=== PATIENT | male | born 1960 | race Caucasian/White ===

== ENCOUNTER 2019-05-06 15:27 | Emergency (ER) | payer OTHER ==
[2019-05-06] MEDS ORDERED: methylPREDNISolone SOD SUCCI 125 MG/2 ML VIAL IV STA (15:48)
[2019-05-06] MEDS ORDERED: IPRATROPIUM-ALBUTEROL 3 ML NEB INHALATION STA (15:48)
[2019-05-06 16:31] LABS: Basophils % (A) 0 %; Eosinophils % (A) 1 %; HCT 43.7 % (39.0-53.0); Lymphocytes % (A) 14 %; MCH 31.8 pg (25.0-35.0); MCHC 34.5 g/dL (31.0-37.0); MCV 92.2 fL (80.0-100.0); Mean Platelet Volume 7.7; Monocytes # (A) 0.3 k/uL (0-1.0); Monocytes % (A) 4 %; Neutrophils # (A) 5.6 k/uL (1.3-7.7); Neutrophils % (A) 80 %; Platelet Count 230 k/uL (150-450); RBC 4.74 m/uL (4.30-5.90); RDW 14.8 % (11.5-15.5)
--- NOTE | 2019-05-06 16:36 | XR ---
EXAMINATION TYPE: XR chest 2V DATE OF EXAM: 05/06/2019 COMPARISON: 01/26/2011 HISTORY: Difficulty breathing TECHNIQUE: Frontal and lateral views of the chest are obtained. FINDINGS: Heart and mediastinum are normal. Lungs are clear. Diaphragm is normal. Bony thorax appear s normal. There are chest leads. IMPRESSION: Normal chest. No change.
[2019-05-06 16:47] LABS: ALT 34 U/L (21-72); AST 33 U/L (17-59); African American GFR (CKD) >90 (>60 ml/min/1.73 sqM); Albumin 4.5 g/dL (3.5-5.0); Alkaline Phosphatase 98 U/L (38-126); Anion Gap 10 mmol/L; Blood Urea Nitrogen 15 mg/dL (9-20); Calcium 9.2 mg/dL (8.4-10.2); Carbon Dioxide 24 mmol/L (22-30); Chloride 105 mmol/L (98-107); Creatine Kinase 301 U/L (55-170); Glucose 114 mg/dL (74-99); Lipase 49 U/L (23-300); Magnesium 2.2 mg/dL (1.6-2.3); Potassium 4.3 mmol/L (3.5-5.1); Sodium 139 mmol/L (137-145); Total Bilirubin 0.4 mg/dL (0.2-1.3); Total Protein 7.3 g/dL (6.3-8.2)
--- NOTE | 2019-05-06 17:40 | ED ---
General Adult HPI - General Chief complaint: Shortness of Breath Stated complaint: SEA Time Seen by Provider: 05/06/19 15:45 Source: patient Mode of arrival: ambulatory Limitations: no limitations - History of Present Illness Initial comments: 58-year-old male presenting for strep throat tightness in breathing. Patient states he has tightness with breathing. He denies any chest pain or shortness of breath. He states he has history of COPD. Patient states he is nervous he inhaled something as he has been spreading his yard. Patient states that he is somewhat congested. Patient denies any leg swelling he denies hemoptysis history of DVT he denies recent surgeries recent travel recent immobilization. Patient denies any significant cough or sputum production. He denies fevers. He denies abdominal pain back pain. He denies any difficulty urinating. Patient states he generalized feels unwell. He states he was given an inhaler steroids at the urgent care facility for outpatient use. Patient states he was told to present to the emergency department for second opinion. He states he did not feel as necessary but abided by their recommendation. Upon arrival patient appears well there is no signs of acute distress. Afebrile. - Related Data Home Medications Medication Instructions Recorded Confirmed Albuterol Inhaler [Ventolin Hfa 1 - 2 puff INHALATION RT-Q6H PRN 05/06/19 05/06/19 Inhaler] predniSONE See Taper PO DIRECTED 05/06/19 05/06/19 Allergies Allergy/AdvReac Type Severity Reaction Status Date / Time Iodinated Contrast- Oral and AdvReac Nausea & Verified 05/06/19 17:05 IV Dye Vomiting/PASSES OUT Review of Systems ROS Statement: Those systems with pertinent positive or pertinent negative responses have been documented in the HPI. ROS Other: All systems not noted in ROS Statement are negative. Past Medical History Past Medical History: COPD History of Any Multi-Drug Resistant Organisms: None Reported Past Surgical History: Orthopedic Surgery Past Psychological History: No Psychological Hx Reported Smoking Status: Current every day smoker Past Alcohol Use History: Daily, Heavy Past Drug Use History: None Reported General Exam - General Exam Comments Initial Comments: General: The patient is awake and alert, in no distress, and does not appear acutely ill. Eye: +3 mm pupils are equal, round and reactive to light, extra-ocular movements are intact. No nystagmus. There is normal conjunctiva bilaterally. No signs of icterus. No photophobia Ears, nose, mouth and throat: There are moist mucous membranes and no oral lesions. Oropharynx was not erythematous there is no tonsillar enlargement exudates or lesions. Uvula midline. Tympanic membranes are not erythematous or is no effusions bulging or retraction. No tenderness to palpation of the mastoid. No anterior cervical lymphadenopathy. Rhinorrhea, clear and bilateral nares. No tripoding, no drooling. Neck: The neck is supple, there is no tenderness or JVD. No nuchal rigidity negative Brudzinski and Kernig Cardiovascular: There is a regular rate and rhythm. No murmur, rub or gallop is appreciated. Respiratory: Respirations are non-labored, breath sounds are equal. Mild expiratory wheeze. No stridor, rales, or rhonchi. No retractions or abdominal breathing. Gastrointestinal: Soft, non-distended, non-tender abdomen without masses or organomegaly noted. There is no rebound or guarding present. Bowel sounds are unremarkable. Musculoskeletal: Normal ROM, no tenderness. Strength 5/5. Sensation intact. Radial pulses equal bilaterally 2+. Neurological: A&O x 3. CN II-XII intact, There are no obvious motor or sensory deficits. Coordination appears grossly intact. Speech appears normal, no muffling. Skin: Skin is warm and dry and no rashes or lesions are noted. No extremity edema Psychiatric: Cooperative Limitations: no limitations Course Vital Signs 05/06/19 05/06/19 15:39 17:12 Temperature 99.1 F Pulse Rate 73 88 Respiratory 18 18 Rate Blood Pressure 143/90 140/87 O2 Sat by Pulse 94 L 96 Oximetry EKG Findings - EKG Comments: EKG Findings:: Ventricular rate 63 bpm, MI interval 152 ms, QRS adventist 88 ms, QT/QTc 412/421. This is normal sinus rhythm. There is right axis noted. N o ST elevation or depression. Medical Decision Making - Medical Decision Making Well appaering 58-year-old male presenting for sore throat, tight sensation chest with deep inspiration. Patient denies chest pain, he states it feels tight only with a deep breath, no tightness at rest or with exertion. Just describes it as he cannot expand his lungs. Patient's lung exam reveals mild wheeze. Patient has no findings consistent with focal consolidation x-ray. Patient was given SoluMedrol DuoNeb treatment emergency department. Improvement of wheezing. EKG no findings consistent with ACS. Troponin (-). Dimer WNL. Laboratory studies revealed no leukocytosis. Patient appears well no signs of acute distress. At this time do feel patient is stable for discharge with outpatient primary care follow-up. Did discuss the case with her provider, Raghav Luna care plan discharge at this time. - Lab Data Result diagrams: 05/06/19 16:02 05/06/19 16:02 Lab Results 05/06/19 05/06/19 05/06/19 Range/Units 16:02 16:02 16:02 WBC 7.0 (3.8-10.6) k/uL RBC 4.74 (4.30-5.90) m/uL Hgb 15.0 (13.0-17.5) gm/dL Hct 43.7 (39.0-53.0) % MCV 92.2 (80.0-100.0) fL MCH 31.8 (25.0-35.0) pg MCHC 34.5 (31.0-37.0) g/dL RDW 14.8 (11.5-15.5) % Plt Count 230 (150-450) k/uL Neutrophils % 80 % Lymphocytes % 14 % Monocytes % 4 % Eosinophils % 1 % Basophils % 0 % Neutrophils # 5.6 (1.3-7.7) k/uL Lymphocytes # 1.0 (1.0-4.8) k/uL Monocytes # 0.3 (0-1.0) k/uL Eosinophils # 0.0 (0-0.7) k/uL Basophils # 0.0 (0-0.2) k/uL D-Dimer (<0.60) mg/L FEU Sodium 139 (137-145) mmol/L Potassium 4.3 (3.5-5.1) mmol/L Chloride 105 (98-107) mmol/L Carbon Dioxide 24 (22-30) mmol/L Anion Gap 10 mmol/L BUN 15 (9-20) mg/dL Creatinine 0.88 (0.66-1.25) mg/dL Est GFR (CKD-EPI)AfAm >90 (>60 ml/min/1.73 sqM) Est GFR (CKD-EPI)NonAf >90 (>60 ml/min/1.73 sqM) Glucose 114 H (74-99) mg/dL Calcium 9.2 (8.4-10.2) mg/dL Magnesium 2.2 (1.6-2.3) mg/dL Total Bilirubin 0.4 (0.2-1.3) mg/dL AST 33 (17-59) U/L ALT 34 (21-72) U/L Alkaline Phosphatase 98 (38-126) U/L Creatine Kinase 301 H (55-170) U/L Troponin I <0.012 (0.000-0.034) ng/mL C-Reactive Protein 6.4 (<10.0) mg/L Total Protein 7.3 (6.3-8.2) g/dL Albumin 4.5 (3.5-5.0) g/dL Lipase 49 (23-300) U/L Urine Color Urine Appearance (Clear) Urine pH (5.0-8.0) Ur Specific [place] (1.001-1.035) Urine Protein (Negative) Urine Glucose (UA) (Negative) Urine Ketones (Negative) Urine Blood (Negative) Urine Nitrite (Negative) Urine Bilirubin (Negative) Urine Urobilinogen (<2.0) mg/dL Ur Leukocyte Esterase (Negative) 05/06/19 05/06/19 Range/Units 16:02 18:33 WBC (3.8-10.6) k/uL RBC (4.30-5.90) m/uL Hgb (13.0-17.5) gm/dL Hct (39.0-53.0) % MCV (80.0-100.0) fL MCH (25.0-35.0) pg MCHC (31.0-37.0) g/dL RDW (11.5-15.5) % Plt Count (150-450) k/uL Neutrophils % % Lymphocytes % % Monocytes % % Eosinophils % % Basophils % % Neutrophils # (1.3-7.7) k/uL Lymphocytes # (1.0-4.8) k/uL Monocytes # (0-1.0) k/uL Eosinophils # (0-0.7) k/uL Basophils # (0-0.2) k/uL D-Dimer 0.28 (<0.60) mg/L FEU Sodium (137-145) mmol/L Potassium (3.5-5.1) mmol/L Chloride (98-107) mmol/L Carbon Dioxide (22-30) mmol/L Anion Gap mmol/L BUN (9-20) mg/dL Creatinine (0.66-1.25) mg/dL Est GFR (CKD-EPI)AfAm (>60 ml/min/1.73 sqM) Est GFR (CKD-EPI)NonAf (>60 ml/min/1.73 sqM) Glucose (74-99) mg/dL Calcium (8.4-10.2) mg/dL Magnesium (1.6-2.3) mg/dL Total Bilirubin (0.2-1.3) mg/dL AST (17-59) U/L ALT (21-72) U/L Alkaline Phosphatase (38-126) U/L Creatine Kinase (55-170) U/L Troponin I (0.000-0.034) ng/mL C-Reactive Protein (<10.0) mg/L Total Protein (6.3-8.2) g/dL Albumin (3.5-5.0) g/dL Lipase (23-300) U/L Urine Color Light Yellow Urine Appearance Clear (Clear) Urine pH 7.0 (5.0-8.0) Ur Specific [place] 1.005 (1.001-1.035) Urine Protein Negative (Negative) Urine Glucose (UA) Negative (Negative) Urine Ketones Negative (Negative) Urine Blood Negative (Negative) Urine Nitrite Negative (Negative) Urine Bilirubin Negative (Negative) Urine Urobilinogen <2.0 (<2.0) mg/dL Ur Leukocyte Esterase Negative (Negative) Disposition Clinical Impression: URI (upper respiratory infection), Sore throat Disposition: HOME SELF-CARE Condition: Good Instructions (If sedation given, give patient instructions): Pharyngitis (ED), Upper Respiratory Infection (ED) Additional Instructions: Please use medication as discussed. Please follow-up with family doctor in the next 2 days. Please return to emergency room if the symptoms increase or worsen or for any other concerns. Is patient prescribed a controlled substance at d/c from ED?: No Referrals: None,Stated [Primary Care Provider] - 1-2 days Time of Disposition: 19:29
[2019-05-06 17:46] LABS: C Reactive Protein 6.4 mg/L (<10.0)
[2019-05-06 18:57] LABS: Appearance,Urine Clear (Clear); Bilirubin,Urine Negative (Negative); Blood,Urine Negative (Negative); Color,Urine Light Yellow; Glucose,Urine (UA) Negative (Negative); Ketones,Urine Negative (Negative); Leukocyte Esterase,Urine Negative (Negative); Nitrite,Urine Negative (Negative); Protein,Urine Negative (Negative); Specific Gravity,Urine 1.005 (1.001-1.035); Urobilinogen,Urine <2.0 mg/dL (<2.0)
[2019-05-06 19:59] VITALS: BP 136/80; PULSE 76; RESP 16; TEMP 99
== END 2019-05-06 19:59 | disposition home or self-care (01) ==
LOC: EC 15:27
DX: J06.9 Acute upper respiratory infection, unspecified (principal); J02.9 Acute pharyngitis, unspecified; J44.9 Chronic obstructive pulmonary disease, unspecified; F17.200 Nicotine dependence, unspecified, uncomplicated; Z79.52 Long term (current) use of systemic steroids; Z91.041 Radiographic dye allergy status; Z53.29 Procedure and treatment not carried out because of patient's decision for other reasons
CPT/HCPCS: 36415; 93005; 85379; 80053; 82550; 83690; 83735; 84484; 85025; 86140; 81003; 71046; 99285; 96374; J2930

== ENCOUNTER 2019-05-08 11:45 | Emergency (ER) | payer OTHER ==
[2019-05-08 11:58] VITALS: RESP 16; TEMP 98.3
--- NOTE | 2019-05-08 14:56 | XR ---
EXAMINATION TYPE: XR chest 2V DATE OF EXAM: 05/08/2019 COMPARISON: 05/06/2019 INDICATION: Short of breath TECHNIQUE: Frontal and lateral views of the chest are obtained. FINDINGS: The heart size is normal. The pulmonary vasculature is normal. The lungs are clear. IMPRESSION: 1. No acute pulmonary process.
[2019-05-08 14:59] LABS: Basophils % (A) 0 %; Eosinophils % (A) 0 %; HCT 46.4 % (39.0-53.0); HGB 15.1 gm/dL (13.0-17.5); Lymphocytes # (A) 1.1 k/uL (1.0-4.8); Lymphocytes % (A) 10 %; MCH 30.8 pg (25.0-35.0); MCHC 32.6 g/dL (31.0-37.0); MCV 94.5 fL (80.0-100.0); Mean Platelet Volume 7.2; Monocytes # (A) 0.3 k/uL (0-1.0); Monocytes % (A) 2 %; Neutrophils # (A) 9.6 k/uL (1.3-7.7); Neutrophils % (A) 87 %; Platelet Count 245 k/uL (150-450); RBC 4.91 m/uL (4.30-5.90); RDW 13.4 % (11.5-15.5)
[2019-05-08 15:16] LABS: ALT 44 U/L (21-72); AST 41 U/L (17-59); African American GFR (CKD) >90 (>60 ml/min/1.73 sqM); Albumin 4.5 g/dL (3.5-5.0); Alkaline Phosphatase 88 U/L (38-126); Anion Gap 11 mmol/L; Blood Urea Nitrogen 19 mg/dL (9-20); Calcium 9.4 mg/dL (8.4-10.2); Carbon Dioxide 24 mmol/L (22-30); Chloride 106 mmol/L (98-107); Glucose 122 mg/dL (74-99); Potassium 4.6 mmol/L (3.5-5.1); Sodium 141 mmol/L (137-145); Total Bilirubin 0.6 mg/dL (0.2-1.3); Total Protein 7.5 g/dL (6.3-8.2)
--- NOTE | 2019-05-08 15:48 | ED ---
Dizziness HPI - General Chief Complaint: Dizziness Stated Complaint: dizziness Time Seen by Provider: 05/08/19 14:06 Source: patient Mode of arrival: ambulatory Limitations: no limitations - History of Present Illness Initial Comments: Patient is a 58-year-old male presents emergency Department with shortness of breath. Patient reports going to the emergency department 2 days ago for similar symptoms and was discharged. Patient reports most of the tightness is around his "upper chest and throat". Patient denies chest pain or pain radiating to either upper extremity. Patient reports the shortness of breath is not exertional. Patient denies headache, fever, nausea, vomiting or diaphoresis. Patient reports mild dizziness and lightheadedness but denies headaches. Patient denies one sided paresthesias or muscle weakness. patient does report a history of COPD and is a current smoker. Patient reports waking up this morning and feeling short of breath so he continue taking "fast shallow breaths" and developed dizziness. Patient denies recent chemotherapy, recent prolonged periods of inactivity, history of DVT, hemoptysis, or leg pain. Patient denies cough, changes in sputum production. - Related Data Home Medications Medication Instructions Recorded Confirmed Albuterol Inhaler [Ventolin Hfa 1 - 2 puff INHALATION RT-Q6H PRN 05/06/19 05/08/19 Inhaler] predniSONE See Taper PO DIRECTED 05/06/19 05/08/19 Allergies Allergy/AdvReac Type Severity Reaction Status Date / Time Iodinated Contrast- Oral and AdvReac Nausea & Verified 05/08/19 14:33 IV Dye Vomiting/PASSES OUT Review of Systems ROS Statement: Those systems with pertinent positive or pertinent negative responses have been documented in the HPI. ROS Other: All systems not noted in ROS Statement are negative. Past Medical History Past Medical History: COPD History of Any Multi-Drug Resistant Organisms: None Reported Past Surgical History: Orthopedic Surgery Past Psychological History: No Psychological Hx Reported Smoking Status: Current every day smoker Past Alcohol Use History: Daily, Heavy Past Drug Use History: None Reported General Exam Limitations: no limitations General appearance: alert, in no apparent distress Head exam: Present: atraumatic, normocephalic, normal inspection Eye exam: Present: normal appearance, PERRL, EOMI Pupils: Present: normal accommodation ENT exam: Present: normal exam, normal oropharynx, mucous membranes moist, TM's normal bilaterally, normal external ear exam Neck exam: Present: normal inspection, full ROM Respiratory exam: Present: normal lung sounds bilaterally, wheezes (Very mild). Absent: respiratory distress, rales, rhonchi, stridor, chest wall tenderness, accessory muscle use Cardiovascular Exam: Present: regular rate, normal rhythm, normal heart sounds Extremities exam: Present: normal inspection, full ROM, normal capillary refill, other (+2 posterior tibialis and dorsalis pedis, bilaterally. +2 ulnar and radial pulses bilaterally.). Absent: calf tenderness Back exam: Present: normal inspection, full ROM. Absent: CVA tenderness (R), CVA tenderness (L) Neurological exam: Present: alert, oriented X3 Psychiatric exam: Present: normal affect, normal mood Skin exam: Present: warm, intact, normal color Course Vital Signs 05/08/19 11:55 Temperature 98.3 F Pulse Rate 60 Respiratory 16 Rate Blood Pressure 148/87 O2 Sat by Pulse 97 Oximetry EKG Findings - EKG Comments: EKG Findings:: EKG reading: Sinus bradycardia, septal infarct but does not appear according to my interpretation. Ventricular rate 51. MS interval 142. QRS duration 78. QT/QTc 430/396. P-RT axes -12 57 46 Medical Decision Making - Medical Decision Making Patient is a 58-year-old male presenting to emergency Department with dizziness. Chest x-ray was unremarkable. CT of the brain is negative for acute hemorrhages or midline shift. Troponins and d-dimer is negative. Patient does have a very mild leukocytosis. Rest of the exam is otherwise unremarkable. EKG is showing sinus bradycardia, inturpretted by Dr. Ruff. Based on history, physical examination, labs and imaging I suspect the patient to have developed dizziness and lightheadedness due to rapid shallow breathing. It is normal and there are no acute cardio pulmonary pathologies present. Patient advised to follow with primary care. Patient advised to take his nebulizer inhaler when developing shortness of breath. Strict return parameters were thoroughly discussed with patient who is understanding and agreeable. I counseled the patient for smoking cessation for greater than 3 minutes. Case discussed with Dr. Ruff who is in agreement with the treatment plan. - Lab Data Result diagrams: 05/08/19 14:20 05/08/19 14:20 Lab Results 05/08/19 05/08/19 05/08/19 Range/Units 14:20 14:20 14:20 WBC 11.0 H (3.8-10.6) k/uL RBC 4.91 (4.30-5.90) m/uL Hgb 15.1 (13.0-17.5) gm/dL Hct 46.4 (39.0-53.0) % MCV 94.5 (80.0-100.0) fL MCH 30.8 (25.0-35.0) pg MCHC 32.6 (31.0-37.0) g/dL RDW 13.4 (11.5-15.5) % Plt Count 245 (150-450) k/uL Neutrophils % 87 % Lymphocytes % 10 % Monocytes % 2 % Eosinophils % 0 % Basophils % 0 % Neutrophils # 9.6 H (1.3-7.7) k/uL Lymphocytes # 1.1 (1.0-4.8) k/uL Monocytes # 0.3 (0-1.0) k/uL Eosinophils # 0.0 (0-0.7) k/uL Basophils # 0.0 (0-0.2) k/uL D-Dimer 0.31 (<0.60) mg/L FEU Sodium 141 (137-145) mmol/L Potassium 4.6 (3.5-5.1) mmol/L Chloride 106 (98-107) mmol/L Carbon Dioxide 24 (22-30) mmol/L Anion Gap 11 mmol/L BUN 19 (9-20) mg/dL Creatinine 0.87 (0.66-1.25) mg/dL Est GFR (CKD-EPI)AfAm >90 (>60 ml/min/1.73 sqM) Est GFR (CKD-EPI)NonAf >90 (>60 ml/min/1.73 sqM) Glucose 122 H (74-99) mg/dL Calcium 9.4 (8.4-10.2) mg/dL Magnesium (1.6-2.3) mg/dL Total Bilirubin 0.6 (0.2-1.3) mg/dL AST 41 (17-59) U/L ALT 44 (21-72) U/L Alkaline Phosphatase 88 (38-126) U/L Troponin I (0.000-0.034) ng/mL Total Protein 7.5 (6.3-8.2) g/dL Albumin 4.5 (3.5-5.0) g/dL 05/08/19 05/08/19 Range/Units 14:20 14:20 WBC (3.8-10.6) k/uL RBC (4.30-5.90) m/uL Hgb (13.0-17.5) gm/dL Hct (39.0-53.0) % MCV (80.0-100.0) fL MCH (25.0-35.0) pg MCHC (31.0-37.0) g/dL RDW (11.5-15.5) % Plt Count (150-450) k/uL Neutrophils % % Lymphocytes % % Monocytes % % Eosinophils % % Basophils % % Neutrophils # (1.3-7.7) k/uL Lymphocytes # (1.0-4.8) k/uL Monocytes # (0-1.0) k/uL Eosinophils # (0-0.7) k/uL Basophils # (0-0.2) k/uL D-Dimer (<0.60) mg/L FEU Sodium (137-145) mmol/L Potassium (3.5-5.1) mmol/L Chloride (98-107) mmol/L Carbon Dioxide (22-30) mmol/L Anion Gap mmol/L BUN (9-20) mg/dL Creatinine (0.66-1.25) mg/dL Est GFR (CKD-EPI)AfAm (>60 ml/min/1.73 sqM) Est GFR (CKD-EPI)NonAf (>60 ml/min/1.73 sqM) Glucose (74-99) mg/dL Calcium (8.4-10.2) mg/dL Magnesium 2.4 H (1.6-2.3) mg/dL Total Bilirubin (0.2-1.3) mg/dL AST (17-59) U/L ALT (21-72) U/L Alkaline Phosphatase (38-126) U/L Troponin I <0.012 (0.000-0.034) ng/mL Total Protein (6.3-8.2) g/dL Albumin (3.5-5.0) g/dL Disposition Clinical Impression: SOB (shortness of breath) Disposition: HOME SELF-CARE Condition: Stable Instructions (If sedation given, give patient instructions): Dizziness (ED) Additional Instructions: Continue using the albuterol once daily develop shortness of breath. Please follow-up with primary care. Please return to emergency department if symptoms worsen. Is patient prescribed a controlled substance at d/c from ED?: No Referrals: Gretta Hendrickson MD [Primary Care Provider] - 1-2 days Time of Disposition: 18:06
--- NOTE | 2019-05-08 16:32 | CT ---
EXAMINATION TYPE: CT brain barry wo con DATE OF EXAM: 05/08/2019 COMPARISON: None HISTORY: Dizziness. CT DLP: 1320.7 mGycm, Automated exposure control for dose reduction was used. CONTRAST: None CT of the brain is performed utilizing 3 mm thick sections through the posterior fossa and 3 mm thick sections through the remaining calvarium. Study is performed within 24 hours of arrival to the hospital. No abnormal hyperdensity is present to suggest an acute intracranial hemorrhage. No mass lesion is evident. No acute infarcts are evident. Ventricles and sulci are appropriate for the patient age. Paranasal sinuses and mastoid air cells within the [id number] are clear. IMPRESSIONS: 1. Normal CT brain. CT cervical spine. COMPARISON: None CT of the cervical spine is performed in the axial plane at 2 mm thick sections. Reconstructed image s in the coronal, and sagittal plane are reviewed on the computer. No acute fractures are evident. Vertebral body alignment is normal. There is diffuse loss of disc height throughout the cervical spine. Small anterior vertebral body spu rs are present C5 and C6. Vertebral body heights are preserved. No spinal canal stenosis is evident. Uncovertebral joint hypertrophy is present causing scattered areas of mild foraminal narrowing. IMPRESSIONS: 1. No acute fractures.
[2019-05-08 18:26] VITALS: BP 149/91; PULSE 54
== END 2019-05-08 18:25 | disposition home or self-care (01) ==
LOC: EC 11:45
DX: D72.829 Elevated white blood cell count, unspecified (principal); R07.89 Other chest pain; R00.1 Bradycardia, unspecified; Z79.52 Long term (current) use of systemic steroids; Z91.041 Radiographic dye allergy status; J44.9 Chronic obstructive pulmonary disease, unspecified; F17.200 Nicotine dependence, unspecified, uncomplicated
CPT/HCPCS: 36415; 70450; 71046; 72125; 80053; 83735; 84484; 85025; 85379; 93005; 99284

== ENCOUNTER 2019-05-12 11:46 | Emergency (ER) | payer OTHER ==
[2019-05-12 12:38] LABS: Appearance,Urine Clear (Clear); Bilirubin,Urine Negative (Negative); Blood,Urine Negative (Negative); Color,Urine Light Yellow; Glucose,Urine (UA) Negative (Negative); Ketones,Urine Negative (Negative); Leukocyte Esterase,Urine Negative (Negative); Nitrite,Urine Negative (Negative); Protein,Urine Negative (Negative); Specific Gravity,Urine 1.004 (1.001-1.035); Urobilinogen,Urine <2.0 mg/dL (<2.0)
[2019-05-12 12:44] LABS: Basophils % (A) 0 %; Eosinophils % (A) 0 %; HCT 47.9 % (39.0-53.0); HGB 15.8 gm/dL (13.0-17.5); Lymphocytes # (A) 0.8 k/uL (1.0-4.8); Lymphocytes % (A) 9 %; MCHC 33.1 g/dL (31.0-37.0); MCV 93.6 fL (80.0-100.0); Mean Platelet Volume 7.3; Monocytes # (A) 0.2 k/uL (0-1.0); Monocytes % (A) 2 %; Neutrophils # (A) 7.8 k/uL (1.3-7.7); Neutrophils % (A) 88 %; Platelet Count 262 k/uL (150-450); RBC 5.12 m/uL (4.30-5.90); RDW 13.1 % (11.5-15.5); WBC 8.9 k/uL (3.8-10.6)
[2019-05-12 12:49] LABS: ALT 38 U/L (21-72); AST 24 U/L (17-59); African American GFR (CKD) >90 (>60 ml/min/1.73 sqM); Albumin 4.5 g/dL (3.5-5.0); Alkaline Phosphatase 87 U/L (38-126); Anion Gap 9 mmol/L; Blood Urea Nitrogen 18 mg/dL (9-20); Calcium 9.4 mg/dL (8.4-10.2); Carbon Dioxide 26 mmol/L (22-30); Chloride 106 mmol/L (98-107); Glucose 138 mg/dL (74-99); Potassium 4.5 mmol/L (3.5-5.1); Sodium 141 mmol/L (137-145); Total Bilirubin 0.5 mg/dL (0.2-1.3); Total Protein 7.4 g/dL (6.3-8.2)
[2019-05-12] MEDS ORDERED: MECLIZINE 12.5 MG TAB PO STA (13:29)
--- NOTE | 2019-05-12 13:38 | ED ---
General Adult HPI - General Chief complaint: Weakness Stated complaint: vertigo Time Seen by Provider: 05/12/19 11:51 Source: patient, EMS, RN notes reviewed, old records reviewed Mode of arrival: EMS Limitations: no limitations - History of Present Illness Initial comments: 58-year-old male patient presents to ED for multiple complaints. Patient reports that he was seen approximate 6 days ago for a COPD exacerbation, started on steroids. Patient reports that since then he has had waxing and waning dizziness, lightheadedness, weakness, ringing in left ear. Patient denies any chest pain or shortness of breath. Patient reports that 2 days ago he felt very dizzy and was evaluated having a workup including a negative CT of brain. Patient reports that he felt well yesterday. Patient reports that today he again had symptoms of weakness and dizziness. Patient reports that this morning he woke up, had 3 cups of coffee, smoke multiple cigarettes, took prednisone, use albuterol inhaler and Zyrtec. Patient reports that he then felt dizzy, lightheaded, some generalized weakness. Patient reports that he presented to the clinic and had a sensation of presyncope. Patient also reports that he was having a sensation of ringing in his left ear. Patient reports that for a transient period of time he felt dizzy and had difficulty speaking. Patient states that this resolved without any intervention was only transient. Patient denies any facial droop, unilateral weakness in arms or legs, paresthesias. At time of evaluation, patient states that generalized weakness sensation and dizziness has greatly improved. Denies any headache at this time. Systemic: Pt denies fatigue, fever/chills, rash. Pt denies weakness, night sweats, weight loss. Neuro: Pt denies headache, visual disturbances, syncope. HEENT: Pt denies ocular discharge or irritation, otalgia, rhinorrhea, pharyngitis or notable lymphadenopathy. Cardiopulmonary: Pt denies chest pain, SOB, heart palpitations, dyspnea on exertion. Abdominal/GI: Pt denies abdominal pain, n/v/d. : Pt denies dysuria, burning w/ urination, frequency/urgency. Denies new onset urinary or bowel incontinence. MSK: Pt denies myalgia, loss of strength or function in extremities. Neuro: Pt denies new onset weakness, paresthesias. - Related Data Home Medications Medication Instructions Recorded Confirmed Albuterol Inhaler [Ventolin Hfa 1 - 2 puff INHALATION RT-Q6H PRN 05/06/19 05/08/19 Inhaler] predniSONE See Taper PO DIRECTED 05/06/19 05/08/19 Previous Rx's Medication Instructions Recorded Meclizine [Antivert] 25 mg PO Q6H PRN #20 tab 05/12/19 Allergies Allergy/AdvReac Type Severity Reaction Status Date / Time Iodinated Contrast- Oral and AdvReac Nausea & Verified 05/08/19 14:33 IV Dye Vomiting/PASSES OUT Review of Systems ROS Statement: Those systems with pertinent positive or pertinent negative responses have been documented in the HPI. ROS Other: All systems not noted in ROS Statement are negative. Past Medical History Past Medical History: COPD History of Any Multi-Drug Resistant Organisms: None Reported Past Surgical History: Orthopedic Surgery Past Psychological History: No Psychological Hx Reported Smoking Status: Current every day smoker Past Alcohol Use History: Daily, Heavy Past Drug Use History: None Reported General Exam - General Exam Comments Initial Comments: Constitutional: NAD, AOX3, Pt has pleasant affect. HEENT: NC/AT, trachea midline, neck supple, no lymphadenopathy. Posterior pharynx non erythematous, without exudates. External ears appear normal, without discharge. Mucous membranes moist. Eyes PERRLA, EOM intact. There is no scleral icterus. No pallor noted. Cardiopulmonary: RRR, no murmurs, rubs or gallops, no JVD noted. Lungs CTAB in anterior and posterior edmonds. No peripheral edema. Abdominal exam: Abdomen soft and non-distended. Abdomen non-tender to palpation in all 4 quadrants. Bowel sounds active in LLQ. No hepatosplenomegaly. No ecchymosis Neuro: CN II-XII intact x2. No nuchal rigidity. No raccon eyes, no yu sign, no hemotympanum. No cervical spinal tenderness. NIH 0. MSK: No posterior calf tenderness bilaterally, homans sign negative bilaterally. Posterior tibialis and radial pulse +2 bilaterally. Sensation intact in upper and lower extremities. Full active ROM in upper and lower extremities, 5/5 stregnth. Limitations: no limitations Course Vital Signs 05/12/19 05/12/19 11:55 12:30 Temperature 98.3 F Pulse Rate 67 66 Respiratory 18 18 Rate Blood Pressure 147/103 132/83 O2 Sat by Pulse 98 97 Oximetry Medical Decision Making - Medical Decision Making 58-year-old male patient presents to due to complaints of ringing in left ear, waxing and waning dizziness, sensation generalized weakness. Patient has a chest pain or shortness breath this time. Patient's vital signs are stable, afebrile. Physical exam displayed a normal neurologic exam, NIH of 0. Laboratory investigations were noncompressive. Troponin was negative. EKG is not concerning for acute ischemia, no change from prior. Shared decision making as patient recently had a CT of brain, patient does not wish to repeat that study due to Reilly radiation. At this time patient's symptoms do appear to be consistent with vertigo. Patient administered meclizine. Patient discharged with primary care provider and neurology follow-up. Pt recommended to not drive. Case discussed with Dr. Gates. - Lab Data Result diagrams: 05/12/19 12:23 05/12/19 12:23 Lab Results 05/12/19 05/12/19 05/12/19 Range/Units 12:23 12:23 12:23 WBC 8.9 (3.8-10.6) k/uL RBC 5.12 (4.30-5.90) m/uL Hgb 15.8 (13.0-17.5) gm/dL Hct 47.9 (39.0-53.0) % MCV 93.6 (80.0-100.0) fL MCH 31.0 (25.0-35.0) pg MCHC 33.1 (31.0-37.0) g/dL RDW 13.1 (11.5-15.5) % Plt Count 262 (150-450) k/uL Neutrophils % 88 % Lymphocytes % 9 % Monocytes % 2 % Eosinophils % 0 % Basophils % 0 % Neutrophils # 7.8 H (1.3-7.7) k/uL Lymphocytes # 0.8 L (1.0-4.8) k/uL Monocytes # 0.2 (0-1.0) k/uL Eosinophils # 0.0 (0-0.7) k/uL Basophils # 0.0 (0-0.2) k/uL Sodium 141 (137-145) mmol/L Potassium 4.5 (3.5-5.1) mmol/L Chloride 106 (98-107) mmol/L Carbon Dioxide 26 (22-30) mmol/L Anion Gap 9 mmol/L BUN 18 (9-20) mg/dL Creatinine 0.86 (0.66-1.25) mg/dL Est GFR (CKD-EPI)AfAm >90 (>60 ml/min/1.73 sqM) Est GFR (CKD-EPI)NonAf >90 (>60 ml/min/1.73 sqM) Glucose 138 H (74-99) mg/dL Calcium 9.4 (8.4-10.2) mg/dL Total Bilirubin 0.5 (0.2-1.3) mg/dL AST 24 (17-59) U/L ALT 38 (21-72) U/L Alkaline Phosphatase 87 (38-126) U/L Troponin I <0.012 (0.000-0.034) ng/mL Total Protein 7.4 (6.3-8.2) g/dL Albumin 4.5 (3.5-5.0) g/dL Urine Color Urine Appearance (Clear) Urine pH (5.0-8.0) Ur Specific Corder (1.001-1.035) Urine Protein (Negative) Urine Glucose (UA) (Negative) Urine Ketones (Negative) Urine Blood (Negative) Urine Nitrite (Negative) Urine Bilirubin (Negative) Urine Urobilinogen (<2.0) mg/dL Ur Leukocyte Esterase (Negative) 05/12/19 Range/Units 12:23 WBC (3.8-10.6) k/uL RBC (4.30-5.90) m/uL Hgb (13.0-17.5) gm/dL Hct (39.0-53.0) % MCV (80.0-100.0) fL MCH (25.0-35.0) pg MCHC (31.0-37.0) g/dL RDW (11.5-15.5) % Plt Count (150-450) k/uL Neutrophils % % Lymphocytes % % Monocytes % % Eosinophils % % Basophils % % Neutrophils # (1.3-7.7) k/uL Lymphocytes # (1.0-4.8) k/uL Monocytes # (0-1.0) k/uL Eosinophils # (0-0.7) k/uL Basophils # (0-0.2) k/uL Sodium (137-145) mmol/L Potassium (3.5-5.1) mmol/L Chloride (98-107) mmol/L Carbon Dioxide (22-30) mmol/L Anion Gap mmol/L BUN (9-20) mg/dL Creatinine (0.66-1.25) mg/dL Est GFR (CKD-EPI)AfAm (>60 ml/min/1.73 sqM) Est GFR (CKD-EPI)NonAf (>60 ml/min/1.73 sqM) Glucose (74-99) mg/dL Calcium (8.4-10.2) mg/dL Total Bilirubin (0.2-1.3) mg/dL AST (17-59) U/L ALT (21-72) U/L Alkaline Phosphatase (38-126) U/L Troponin I (0.000-0.034) ng/mL Total Protein (6.3-8.2) g/dL Albumin (3.5-5.0) g/dL Urine Color Light Yellow Urine Appearance Clear (Clear) Urine pH 7.0 (5.0-8.0) Ur Specific Corder 1.004 (1.001-1.035) Urine Protein Negative (Negative) Urine Glucose (UA) Negative (Negative) Urine Ketones Negative (Negative) Urine Blood Negative (Negative) Urine Nitrite Negative (Negative) Urine Bilirubin Negative (Negative) Urine Urobilinogen <2.0 (<2.0) mg/dL Ur Leukocyte Esterase Negative (Negative) Disposition Clinical Impression: Vertigo, Lightheadedness Disposition: HOME SELF-CARE Condition: Stable Instructions (If sedation given, give patient instructions): Vertigo (ED) Additional Instructions: Patient to adhere to previously discussed treatment plan and will take medication(s) as directed. Patient to follow up with PCP in 1-2 days. Patient to return to ED if symptoms do not improve. Take medications as needed for vertigo symptoms. Follow up with neurology consult. Return to ER if condition worsens in any way. Prescriptions: Meclizine [Antivert] 25 mg PO Q6H PRN #20 tab PRN Reason: Dizziness Is patient prescribed a controlled substance at d/c from ED?: No Referrals: Gretta Hendrickson MD [Primary Care Provider] - 1-2 days Joshua Lima MD [Medical Doctor] - 1-2 days
[2019-05-12 14:19] VITALS: BP 131/83; PULSE 71; RESP 16; TEMP 97.9
== END 2019-05-12 14:59 | disposition home or self-care (01) ==
LOC: EC 11:46
DX: R42 Dizziness and giddiness (principal); R53.1 Weakness; H93.12 Tinnitus, left ear; R07.9 Chest pain, unspecified; R06.02 Shortness of breath; J44.9 Chronic obstructive pulmonary disease, unspecified; F17.210 Nicotine dependence, cigarettes, uncomplicated; Z79.52 Long term (current) use of systemic steroids; Z91.041 Radiographic dye allergy status
CPT/HCPCS: 36415; 80053; 81003; 84484; 85025; 93005; 99285

== ENCOUNTER 2020-01-25 15:44 | Emergency (ER) | payer OTHER ==
[2020-01-25 15:50] VITALS: RESP 18
[2020-01-25] MEDS ORDERED: ONDANSETRON 4 MG/2 ML VIAL IVP STA (16:23)
[2020-01-25] MEDS ORDERED: SODIUM CHLORIDE 0.9% 1,000 ML IV STA (16:23)
[2020-01-25] MEDS ORDERED: PANTOPRAZOLE 40 MG/10 ML VIAL IVP STA (16:23)
--- NOTE | 2020-01-25 16:31 | ED ---
General Adult HPI - General Chief complaint: Nausea/Vomiting/Diarrhea Stated complaint: Diarrhea, fever Time Seen by Provider: 01/25/20 15:56 Source: patient Mode of arrival: ambulatory Limitations: no limitations - History of Present Illness Initial comments: Patient is a 59-year-old male with history of vertigo presents emergency Department with multiple chief complaints. Patient reports he has developed intermittent, dull abdominal pain in the periUmbilical region for about one week. Patient states he's also noticed some dark stools over the last week. Patient states the pain appears to be exacerbated postprandially. Patient states he does have occasional acid reflux sensation. States he he drinks lots of coffee, pop and usually eats about one hour prior to going to bed. Patient states typically sleeps flat without a pillow. Patient is also reporting pain near his right buttock that has been on and off for the last several months. Patient also reports occasional dizziness after he wakes up in the morning with the room spinning around him. Patient reports he was evaluated previously in the ED and was discharged. Patient states she followed up with a primary care and has seen a neurologist who cleared the patient. Patient denies any urinary symptoms. Patient denies any testicular pain swelling or penile discharge. Denies any cough chest pain shortness of breath blurry vision one-sided weakness or paresthesias. Patient states she was evaluated at later in hospital and [place] with no significant findings. - Related Data Home Medications Medication Instructions Recorded Confirmed Albuterol Inhaler [Ventolin Hfa 1 - 2 puff INHALATION RT-Q6H PRN 05/06/19 05/08/19 Inhaler] predniSONE See Taper PO DIRECTED 05/06/19 05/08/19 Previous Rx's Medication Instructions Recorded Meclizine [Antivert] 25 mg PO Q6H PRN #20 tab 05/12/19 Omeprazole [PriLOSEC] 20 mg PO AC-BRKFST #30 cap 01/25/20 Allergies Allergy/AdvReac Type Severity Reaction Status Date / Time Iodinated Contrast Media AdvReac Nausea & Verified 01/25/20 15:50 [Iodinated Contrast- Oral Vomiting/PASSES and IV Dye] OUT Review of Systems ROS Statement: Those systems with pertinent positive or pertinent negative responses have been documented in the HPI. ROS Other: All systems not noted in ROS Statement are negative. Past Medical History Past Medical History: COPD History of Any Multi-Drug Resistant Organisms: None Reported Past Surgical History: Orthopedic Surgery Past Psychological History: No Psychological Hx Reported Smoking Status: Current every day smoker Past Alcohol Use History: Daily, Heavy Past Drug Use History: None Reported General Exam Limitations: no limitations General appearance: alert, in no apparent distress Head exam: Present: atraumatic, normocephalic, normal inspection Eye exam: Present: normal appearance, PERRL, EOMI Pupils: Present: normal accommodation ENT exam: Present: normal exam, normal oropharynx, mucous membranes moist, TM's normal bilaterally, normal external ear exam Neck exam: Present: normal inspection, full ROM Respiratory exam: Present: normal lung sounds bilaterally Cardiovascular Exam: Present: regular rate, normal rhythm, normal heart sounds GI/Abdominal exam: Present: soft, tenderness (Mild, periumbilical tenderness.). Absent: distended, guarding, rebound, rigid Extremities exam: Present: normal inspection, full ROM Back exam: Present: normal inspection, full ROM Neurological exam: Present: alert, oriented X3 Psychiatric exam: Present: normal affect, normal mood Skin exam: Present: warm, dry, intact, normal color Course Vital Signs 01/25/20 01/25/20 01/25/20 15:46 17:02 18:15 Temperature 98.0 F 99.0 F 99.1 F Pulse Rate 79 82 Respiratory 18 18 Rate Blood Pressure 144/74 136/65 O2 Sat by Pulse 99 98 Oximetry Medical Decision Making - Medical Decision Making Patient is a 59-year-old male with history of vertigo presenting to emergency Department with multiple chief complaints. Patient has a right ovarian evaluated for his neurological symptoms that he has been cleared. Patient does have anxiety. I suspect the abdominal symptoms are related due to his constant intake of NSAIDs for prolonged periods of time. Patient given Protonix fluids and antiemetics in the ED. CBC does show mild leukocytosis. CMP unremarkable. Patient reports improvement in the abdominal symptoms. Patient will be started on omeprazole. Patient advised to avoid before going to bed. He was also advised to avoid any acidic drinks or foods. He was advised to keep the bed slightly elevated when sleeping. I suspect the dizziness secondary to his history of vertigo. Patient advised to take Antivert whenever he develops onset of symptoms. Advised to follow with primary care. Return parameters thoroughly discussed the patient is abstaining agreeable. Case discussed with physician. - Lab Data Result diagrams: 01/25/20 17:19 01/25/20 17:19 Lab Results 01/25/20 01/25/20 Range/Units 17:19 17:19 WBC 11.1 H (3.8-10.6) k/uL RBC 4.80 (4.30-5.90) m/uL Hgb 14.8 (13.0-17.5) gm/dL Hct 44.9 (39.0-53.0) % MCV 93.5 (80.0-100.0) fL MCH 30.9 (25.0-35.0) pg MCHC 33.1 (31.0-37.0) g/dL RDW 12.9 (11.5-15.5) % Plt Count 222 (150-450) k/uL Neutrophils % 73 % Lymphocytes % 20 % Monocytes % 5 % Eosinophils % 1 % Basophils % 0 % Neutrophils # 8.2 H (1.3-7.7) k/uL Lymphocytes # 2.2 (1.0-4.8) k/uL Monocytes # 0.5 (0-1.0) k/uL Eosinophils # 0.1 (0-0.7) k/uL Basophils # 0.0 (0-0.2) k/uL Sodium 138 (137-145) mmol/L Potassium 4.2 (3.5-5.1) mmol/L Chloride 105 (98-107) mmol/L Carbon Dioxide 28 (22-30) mmol/L Anion Gap 5 mmol/L BUN 16 (9-20) mg/dL Creatinine 0.89 (0.66-1.25) mg/dL Est GFR (CKD-EPI)AfAm >90 (>60 ml/min/1.73 sqM) Est GFR (CKD-EPI)NonAf >90 (>60 ml/min/1.73 sqM) Glucose 105 H (74-99) mg/dL Calcium 9.4 (8.4-10.2) mg/dL Total Bilirubin 0.4 (0.2-1.3) mg/dL AST 24 (17-59) U/L ALT 29 (4-49) U/L Alkaline Phosphatase 77 (38-126) U/L Total Protein 7.3 (6.3-8.2) g/dL Albumin 4.5 (3.5-5.0) g/dL Disposition Clinical Impression: Nausea vomiting and diarrhea, Abdominal pain Disposition: HOME SELF-CARE Condition: Stable Instructions (If sedation given, give patient instructions): Diet for Stomach Ulcers and Gastritis (ED), Gastroesophageal Reflux Disease (DC) Additional Instructions: Take prescribed medication as directed. Follow-up with primary care. Return to emergency department if symptoms worsen. Prescriptions: Omeprazole [PriLOSEC] 20 mg PO -BRKFST #30 cap Is patient prescribed a controlled substance at d/c from ED?: No Referrals: Gretta Hendrickson MD [Primary Care Provider] - 1-2 days Time of Disposition: 17:52
[2020-01-25 17:27] LABS: Basophils % (A) 0 %; Eosinophils # (A) 0.1 k/uL (0-0.7); Eosinophils % (A) 1 %; HCT 44.9 % (39.0-53.0); HGB 14.8 gm/dL (13.0-17.5); Lymphocytes # (A) 2.2 k/uL (1.0-4.8); Lymphocytes % (A) 20 %; MCH 30.9 pg (25.0-35.0); MCHC 33.1 g/dL (31.0-37.0); MCV 93.5 fL (80.0-100.0); Mean Platelet Volume 7.9; Monocytes # (A) 0.5 k/uL (0-1.0); Monocytes % (A) 5 %; Neutrophils # (A) 8.2 k/uL (1.3-7.7); Neutrophils % (A) 73 %; Platelet Count 222 k/uL (150-450); RDW 12.9 % (11.5-15.5); WBC 11.1 k/uL (3.8-10.6)
[2020-01-25 17:39] LABS: ALT 29 U/L (4-49); AST 24 U/L (17-59); African American GFR (CKD) >90 (>60 ml/min/1.73 sqM); Albumin 4.5 g/dL (3.5-5.0); Alkaline Phosphatase 77 U/L (38-126); Anion Gap 5 mmol/L; Blood Urea Nitrogen 16 mg/dL (9-20); Calcium 9.4 mg/dL (8.4-10.2); Carbon Dioxide 28 mmol/L (22-30); Chloride 105 mmol/L (98-107); Glucose 105 mg/dL (74-99); Non-African American GFR(CKD) >90 (>60 ml/min/1.73 sqM); Potassium 4.2 mmol/L (3.5-5.1); Sodium 138 mmol/L (137-145); Total Bilirubin 0.4 mg/dL (0.2-1.3); Total Protein 7.3 g/dL (6.3-8.2)
[2020-01-25 18:21] VITALS: BP 136/65; PULSE 82; TEMP 99.1
== END 2020-01-25 18:15 | disposition home or self-care (01) ==
LOC: EC 15:44
DX: R19.7 Diarrhea, unspecified (principal); R11.2 Nausea with vomiting, unspecified; R10.33 Periumbilical pain; D72.829 Elevated white blood cell count, unspecified; F41.9 Anxiety disorder, unspecified; R42 Dizziness and giddiness; M79.18 Myalgia, other site; R19.5 Other fecal abnormalities; R19.8 Other specified symptoms and signs involving the digestive system and abdomen; J44.9 Chronic obstructive pulmonary disease, unspecified; F17.200 Nicotine dependence, unspecified, uncomplicated; Z91.041 Radiographic dye allergy status; Z79.52 Long term (current) use of systemic steroids; Z79.899 Other long term (current) drug therapy
CPT/HCPCS: 36415; 80053; 85025; 99284; 96374; 96375; 96361; J2405; C9113

== ENCOUNTER 2020-01-27 20:03 | Observation (INO) | payer OTHER ==
[2020-01-27] MEDS ORDERED: SODIUM CHLORIDE 0.9% 1,000 ML IV ONE (20:33)
--- NOTE | 2020-01-27 20:38 | ED ---
General Adult HPI - General Source: patient, RN notes reviewed, old records reviewed Mode of arrival: ambulatory Limitations: no limitations <Abram Moraes - Last Filed: 01/27/20 22:45> <Aleksandr Coto - Last Filed: 01/27/20 23:36> - General Chief complaint: Dizziness Stated complaint: Chest pain Time Seen by Provider: 01/27/20 20:11 - History of Present Illness Initial comments: 59-year-old male patient presents to ED for evaluation. Patient does have history of COPD. Patient reports that beginning one week ago he has been having symptoms. Patient reports that he has been having paresthesias in his upper and lower extremities. Patient force that he has been feeling as if he is going to pass out. Patient also that he has been having some in his lower back region. At time of evaluation patient is asymptomatic. Patient does report that 1 hour ago he began experiencing a squeezing chest pain. States it lasted approximately 30 minutes. This was while driving. Reports the pain has resolved at this time. Denies any shortness of breath. Patient does also report that he recently quit drinking alcohol. States he quit one week ago. States that he previously drank 6 beers per day. Patient reports that this is the fifth time he has been seen. He reports that he was seen for similar symptoms at [facility] twice, 2 days ago this facility. He states that he has been having subjective fevers and chills. Denies any other complaints. Systemic: Pt denies fatigue, fever/chills, rash. Pt denies weakness, night sweats, weight loss. Neuro: Pt denies headache, visual disturbances, syncope or pre-syncope. HEENT: Pt denies ocular discharge or irritation, otalgia, rhinorrhea, pharyngitis or notable lymphadenopathy. Cardiopulmonary: Pt denies chest pain, SOB, heart palpitations, dyspnea on exertion. Abdominal/GI: Pt denies abdominal pain, n/v/d. : Pt denies dysuria, burning w/ urination, frequency/urgency. Denies new onset urinary or bowel incontinence. MSK: Pt denies myalgia, loss of strength or function in extremities. Neuro: Pt denies new onset weakness, paresthesias. (Abram Moraes) - Related Data Home Medications Medication Instructions Recorded Confirmed Albuterol Inhaler [Ventolin Hfa 1 - 2 puff INHALATION RT-Q6H PRN 05/06/19 05/08/19 Inhaler] predniSONE See Taper PO DIRECTED 05/06/19 05/08/19 Previous Rx's Medication Instructions Recorded Meclizine [Antivert] 25 mg PO Q6H PRN #20 tab 05/12/19 Omeprazole [PriLOSEC] 20 mg PO AC-BRKFST #30 cap 01/25/20 Allergies Allergy/AdvReac Type Severity Reaction Status Date / Time Iodinated Contrast Media AdvReac Nausea & Verified 01/27/20 20:09 [Iodinated Contrast- Oral Vomiting/PASSES and IV Dye] OUT Review of Systems ROS Other: All systems not noted in ROS Statement are negative. <Abram Moraes - Last Filed: 01/27/20 22:45> ROS Other: All systems not noted in ROS Statement are negative. <Aleksandr Coto - Last Filed: 01/27/20 23:36> ROS Statement: Those systems with pertinent positive or pertinent negative responses have been documented in the HPI. Past Medical History Past Medical History: COPD History of Any Multi-Drug Resistant Organisms: None Reported Past Surgical History: Orthopedic Surgery Past Psychological History: No Psychological Hx Reported Smoking Status: Current every day smoker Past Alcohol Use History: Daily, Heavy Past Drug Use History: None Reported <Abram Moraes - Last Filed: 01/27/20 22:45> General Exam Limitations: no limitations <Abram Moraes - Last Filed: 01/27/20 22:45> - General Exam Comments Initial Comments: Constitutional: NAD, AOX3, Pt has pleasant affect. HEENT: NC/AT, trachea midline, neck supple, no lymphadenopathy. Posterior pharynx non erythematous, without exudates. External ears appear normal, without discharge. Mucous membranes moist. Eyes PERRLA, EOM intact. There is no scleral icterus. No pallor noted. Cardiopulmonary: RRR, no murmurs, rubs or gallops, no JVD noted. Lungs CTAB in anterior and posterior edmonds. No peripheral edema. Abdominal exam: Abdomen soft and non-distended. Abdomen non-tender to palpation in all 4 quadrants. Bowel sounds active in LLQ. No hepatosplenomegaly. No ecchymosis Neuro: CN II-XII intact. No nuchal rigidity. No raccon eyes, no yu sign, no hemotympanum. No cervical spinal tenderness. MSK: No posterior calf tenderness bilaterally, homans sign negative bilaterally. Posterior tibialis and radial pulse +2 bilaterally. Sensation intact in upper and lower extremities. Full active ROM in upper and lower extremities, 5/5 stregnth. (Abram Moraes) Course <Aleksandr Coto - Last Filed: 01/27/20 23:36> Vital Signs 01/27/20 01/27/20 01/27/20 20:07 20:30 21:00 Temperature 98.6 F Pulse Rate 78 68 68 Respiratory 20 20 20 Rate Blood Pressure 126/83 144/85 140/88 O2 Sat by Pulse 100 98 97 Oximetry 01/27/20 01/27/20 22:00 23:00 Temperature 98.3 F Pulse Rate 72 62 Respiratory 20 18 Rate Blood Pressure 142/88 132/82 O2 Sat by Pulse 96 98 Oximetry - Reevaluation(s) Reevaluation #1: 01/27/20 23:35 PA supervision: I personally evaluate this case patient presents with complaints of chest pain. Patient does have a history of alcoholism and quit drinking about a week ago. The presentation is consistent with angina. Patient be admitted to 's service (Aleksandr Coto) Medical Decision Making - Lab Data Result diagrams: 01/27/20 20:20 01/27/20 20:20 - EKG Data -: EKG Interpreted by Me (and Dr. Coto ) <Abram Moraes - Last Filed: 01/27/20 22:45> - Lab Data Result diagrams: 01/27/20 20:20 01/27/20 20:20 <Aleksandr Coto - Last Filed: 01/27/20 23:36> - Medical Decision Making 59-year-old male patient presents to ED for evaluation. Patient does have history of COPD. Patient reports that beginning one week ago he has been having symptoms. Patient reports that he has been having paresthesias in his upper and lower extremities. Patient force that he has been feeling as if he is going to pass out. Patient also that he has been having some in his lower back region. At time of evaluation patient is asymptomatic. Patient does report that 1 hour ago he began experiencing a squeezing chest pain. States it lasted approximately 30 minutes. This was while driving. Reports the pain has resolved at this time. Denies any shortness of breath. Patient does also report that he recently quit drinking alcohol. States he quit one week ago. States that he previously drank 6 beers per day. Patient reports that this is the fifth time he has been seen. He reports that he was seen for similar symptoms at [facility] twice, 2 days ago this facility. He states that he has been having subjective fevers and chills. Denies any other complaints. Patient vital signs are stable, afebrile. Physical exam did not display acute pathology. NIH is 0. Sensation is intact. Laboratory investigations are noncompressive. D-dimer negative. Troponin negative. EKG is nonischemic. Patient will be admitted for serial troponins and continued evaluation. Patient denies any known chronic virus exposure, recent travel. Case discussed with Dr. Coto (Abram Moraes) - Lab Data Lab Results 01/27/20 01/27/20 01/27/20 Range/Units 20:20 20:20 20:20 WBC 10.4 (3.8-10.6) k/uL RBC 4.72 (4.30-5.90) m/uL Hgb 14.9 (13.0-17.5) gm/dL Hct 44.1 (39.0-53.0) % MCV 93.4 (80.0-100.0) fL MCH 31.7 (25.0-35.0) pg MCHC 33.9 (31.0-37.0) g/dL RDW 13.1 (11.5-15.5) % Plt Count 243 (150-450) k/uL Neutrophils % 60 % Lymphocytes % 31 % Monocytes % 5 % Eosinophils % 2 % Basophils % 0 % Neutrophils # 6.3 (1.3-7.7) k/uL Lymphocytes # 3.2 (1.0-4.8) k/uL Monocytes # 0.5 (0-1.0) k/uL Eosinophils # 0.2 (0-0.7) k/uL Basophils # 0.0 (0-0.2) k/uL D-Dimer (<0.60) mg/L FEU Sodium 139 (137-145) mmol/L Potassium 3.9 (3.5-5.1) mmol/L Chloride 106 (98-107) mmol/L Carbon Dioxide 26 (22-30) mmol/L Anion Gap 7 mmol/L BUN 15 (9-20) mg/dL Creatinine 0.99 (0.66-1.25) mg/dL Est GFR (CKD-EPI)AfAm >90 (>60 ml/min/1.73 sqM) Est GFR (CKD-EPI)NonAf 83 (>60 ml/min/1.73 sqM) Glucose 120 H (74-99) mg/dL Calcium 9.3 (8.4-10.2) mg/dL Phosphorus 2.6 (2.5-4.5) mg/dL Magnesium 2.2 (1.6-2.3) mg/dL Total Bilirubin 0.2 (0.2-1.3) mg/dL AST 22 (17-59) U/L ALT 23 (4-49) U/L Alkaline Phosphatase 75 (38-126) U/L Troponin I <0.012 (0.000-0.034) ng/mL NT-Pro-B Natriuret Pep pg/mL Total Protein 7.0 (6.3-8.2) g/dL Albumin 4.4 (3.5-5.0) g/dL Urine Color Urine Appearance (Clear) Urine pH (5.0-8.0) Ur Specific [place] (1.001-1.035) Urine Protein (Negative) Urine Glucose (UA) (Negative) Urine Ketones (Negative) Urine Blood (Negative) Urine Nitrite (Negative) Urine Bilirubin (Negative) Urine Urobilinogen (<2.0) mg/dL Ur Leukocyte Esterase (Negative) Urine RBC (0-5) /hpf Urine WBC (0-5) /hpf Ur Squamous Epith Cells (0-4) /hpf Urine Mucus (None) /hpf Urine Opiates Screen (NotDetected) Ur Oxycodone Screen (NotDetected) Urine Methadone Screen (NotDetected) Ur Propoxyphene Screen (NotDetected) Ur Barbiturates Screen (NotDetected) U Tricyclic Antidepress (NotDetected) Ur Phencyclidine Scrn (NotDetected) Ur Amphetamines Screen (NotDetected) U Methamphetamines Scrn (NotDetected) U Benzodiazepines Scrn (NotDetected) Urine Cocaine Screen (NotDetected) U Marijuana (THC) Screen (NotDetected) Serum Alcohol mg/dL 01/27/20 01/27/20 01/27/20 Range/Units 20:20 20:20 20:20 WBC (3.8-10.6) k/uL RBC (4.30-5.90) m/uL Hgb (13.0-17.5) gm/dL Hct (39.0-53.0) % MCV (80.0-100.0) fL MCH (25.0-35.0) pg MCHC (31.0-37.0) g/dL RDW (11.5-15.5) % Plt Count (150-450) k/uL Neutrophils % % Lymphocytes % % Monocytes % % Eosinophils % % Basophils % % Neutrophils # (1.3-7.7) k/uL Lymphocytes # (1.0-4.8) k/uL Monocytes # (0-1.0) k/uL Eosinophils # (0-0.7) k/uL Basophils # (0-0.2) k/uL D-Dimer <0.17 (<0.60) mg/L FEU Sodium (137-145) mmol/L Potassium (3.5-5.1) mmol/L Chloride (98-107) mmol/L Carbon Dioxide (22-30) mmol/L Anion Gap mmol/L BUN (9-20) mg/dL Creatinine (0.66-1.25) mg/dL Est GFR (CKD-EPI)AfAm (>60 ml/min/1.73 sqM) Est GFR (CKD-EPI)NonAf (>60 ml/min/1.73 sqM) Glucose (74-99) mg/dL Calcium (8.4-10.2) mg/dL Phosphorus (2.5-4.5) mg/dL Magnesium (1.6-2.3) mg/dL Total Bilirubin (0.2-1.3) mg/dL AST (17-59) U/L ALT (4-49) U/L Alkaline Phosphatase (38-126) U/L Troponin I (0.000-0.034) ng/mL NT-Pro-B Natriuret Pep 94 pg/mL Total Protein (6.3-8.2) g/dL Albumin (3.5-5.0) g/dL Urine Color Urine Appearance (Clear) Urine pH (5.0-8.0) Ur Specific [place] (1.001-1.035) Urine Protein (Negative) Urine Glucose (UA) (Negative) Urine Ketones (Negative) Urine Blood (Negative) Urine Nitrite (Negative) Urine Bilirubin (Negative) Urine Urobilinogen (<2.0) mg/dL Ur Leukocyte Esterase (Negative) Urine RBC (0-5) /hpf Urine WBC (0-5) /hpf Ur Squamous Epith Cells (0-4) /hpf Urine Mucus (None) /hpf Urine Opiates Screen (NotDetected) Ur Oxycodone Screen (NotDetected) Urine Methadone Screen (NotDetected) Ur Propoxyphene Screen (NotDetected) Ur Barbiturates Screen (NotDetected) U Tricyclic Antidepress (NotDetected) Ur Phencyclidine Scrn (NotDetected) Ur Amphetamines Screen (NotDetected) U Methamphetamines Scrn (NotDetected) U Benzodiazepines Scrn (NotDetected) Urine Cocaine Screen (NotDetected) U Marijuana (THC) Screen (NotDetected) Serum Alcohol <10 mg/dL 01/27/20 Range/Units 21:15 WBC (3.8-10.6) k/uL RBC (4.30-5.90) m/uL Hgb (13.0-17.5) gm/dL Hct (39.0-53.0) % MCV (80.0-100.0) fL MCH (25.0-35.0) pg MCHC (31.0-37.0) g/dL RDW (11.5-15.5) % Plt Count (150-450) k/uL Neutrophils % % Lymphocytes % % Monocytes % % Eosinophils % % Basophils % % Neutrophils # (1.3-7.7) k/uL Lymphocytes # (1.0-4.8) k/uL Monocytes # (0-1.0) k/uL Eosinophils # (0-0.7) k/uL Basophils # (0-0.2) k/uL D-Dimer (<0.60) mg/L FEU Sodium (137-145) mmol/L Potassium (3.5-5.1) mmol/L Chloride (98-107) mmol/L Carbon Dioxide (22-30) mmol/L Anion Gap mmol/L BUN (9-20) mg/dL Creatinine (0.66-1.25) mg/dL Est GFR (CKD-EPI)AfAm (>60 ml/min/1.73 sqM) Est GFR (CKD-EPI)NonAf (>60 ml/min/1.73 sqM) Glucose (74-99) mg/dL Calcium (8.4-10.2) mg/dL Phosphorus (2.5-4.5) mg/dL Magnesium (1.6-2.3) mg/dL Total Bilirubin (0.2-1.3) mg/dL AST (17-59) U/L ALT (4-49) U/L Alkaline Phosphatase (38-126) U/L Troponin I (0.000-0.034) ng/mL NT-Pro-B Natriuret Pep pg/mL Total Protein (6.3-8.2) g/dL Albumin (3.5-5.0) g/dL Urine Color Yellow Urine Appearance Cloudy (Clear) Urine pH 7.0 (5.0-8.0) Ur Specific [place] 1.025 (1.001-1.035) Urine Protein Trace H (Negative) Urine Glucose (UA) Negative (Negative) Urine Ketones Negative (Negative) Urine Blood Negative (Negative) Urine Nitrite Negative (Negative) Urine Bilirubin Negative (Negative) Urine Urobilinogen 2.0 (<2.0) mg/dL Ur Leukocyte Esterase Negative (Negative) Urine RBC 3 (0-5) /hpf Urine WBC 1 (0-5) /hpf Ur Squamous Epith Cells <1 (0-4) /hpf Urine Mucus Many H (None) /hpf Urine Opiates Screen Not Detected (NotDetected) Ur Oxycodone Screen Not Detected (NotDetected) Urine Methadone Screen Not Detected (NotDetected) Ur Propoxyphene Screen Not Detected (NotDetected) Ur Barbiturates Screen Not Detected (NotDetected) U Tricyclic Antidepress Not Detected (NotDetected) Ur Phencyclidine Scrn Not Detected (NotDetected) Ur Amphetamines Screen Not Detected (NotDetected) U Methamphetamines Scrn Not Detected (NotDetected) U Benzodiazepines Scrn Not Detected (NotDetected) Urine Cocaine Screen Not Detected (NotDetected) U Marijuana (THC) Screen Not Detected (NotDetected) Serum Alcohol mg/dL - EKG Data EKG Comments: Ventricular rate 60, painful and 54, QRS 84, QT/QTc 42/42. Normal sensory rhythm, septal infarct age-indeterminate. No significant change from prior. No concern for acute ischemia. (Abram Moraes) Disposition Is patient prescribed a controlled substance at d/c from ED?: No <Abram Moraes - Last Filed: 01/27/20 22:45> <Aleksandr Coto - Last Filed: 01/27/20 23:36> Clinical Impression: Chest pain Disposition: ADMITTED IP TO THIS HOSP Condition: Serious
[2020-01-27] MEDS ORDERED: ASPIRIN 81 MG PO STA (20:47)
[2020-01-27 20:53] LABS: Basophils % (A) 0 %; Eosinophils # (A) 0.2 k/uL (0-0.7); Eosinophils % (A) 2 %; HCT 44.1 % (39.0-53.0); HGB 14.9 gm/dL (13.0-17.5); Lymphocytes # (A) 3.2 k/uL (1.0-4.8); Lymphocytes % (A) 31 %; MCH 31.7 pg (25.0-35.0); MCHC 33.9 g/dL (31.0-37.0); MCV 93.4 fL (80.0-100.0); Mean Platelet Volume 8.2; Monocytes # (A) 0.5 k/uL (0-1.0); Monocytes % (A) 5 %; Neutrophils # (A) 6.3 k/uL (1.3-7.7); Neutrophils % (A) 60 %; Platelet Count 243 k/uL (150-450); RBC 4.72 m/uL (4.30-5.90); RDW 13.1 % (11.5-15.5); WBC 10.4 k/uL (3.8-10.6)
[2020-01-27 21:05] LABS: ALT 23 U/L (4-49); AST 22 U/L (17-59); African American GFR (CKD) >90 (>60 ml/min/1.73 sqM); Albumin 4.4 g/dL (3.5-5.0); Alkaline Phosphatase 75 U/L (38-126); Anion Gap 7 mmol/L; Blood Urea Nitrogen 15 mg/dL (9-20); Calcium 9.3 mg/dL (8.4-10.2); Carbon Dioxide 26 mmol/L (22-30); Chloride 106 mmol/L (98-107); Glucose 120 mg/dL (74-99); Magnesium 2.2 mg/dL (1.6-2.3); Non-African American GFR(CKD) 83 (>60 ml/min/1.73 sqM); Phosphorus 2.6 mg/dL (2.5-4.5); Potassium 3.9 mmol/L (3.5-5.1); Sodium 139 mmol/L (137-145); Total Bilirubin 0.2 mg/dL (0.2-1.3)
[2020-01-27] MEDS ORDERED: LORazepam 2 MG/ML INJ IV PRN ×3 (21:06)
[2020-01-27] MEDS ORDERED: THIAMINE 100 MG/ML 2 ML VIAL IM STA (21:06)
--- NOTE | 2020-01-27 21:09 | XR ---
EXAMINATION TYPE: XR chest 2V DATE OF EXAM: 01/27/2020 COMPARISON: Chest x-ray May 08, 2019. HISTORY: Chest pain on and off. Numbness throughout body. TECHNIQUE: Frontal and lateral views of the chest are obtained. FINDINGS: There is no focal air space opacity, pleural effusion, or pneumothorax seen. The cardiac silhouette size remains within normal limits. The osseous structures are intact. Overlying EKG lead s redemonstrated. IMPRESSION: No acute cardiopulmonary process. No significant change from prior study.
[2020-01-27] MEDS: THIAMINE 100 MG TAB PO SCH (21:30)
[2020-01-27 21:33] LABS: Appearance,Urine Cloudy (Clear); Bilirubin,Urine Negative (Negative); Blood,Urine Negative (Negative); Color,Urine Yellow; Glucose,Urine (UA) Negative (Negative); Ketones,Urine Negative (Negative); Leukocyte Esterase,Urine Negative (Negative); Mucus,Urine Many /hpf; Nitrite,Urine Negative (Negative); Protein,Urine Trace (Negative); RBC,Urine 3 /hpf (0-5); Specific Gravity,Urine 1.025 (1.001-1.035); Squamous Epithelial Cell,Urine <1 /hpf (0-4); WBC,Urine 1 /hpf (0-5)
[2020-01-27 21:40] LABS: Amphetamine Screen,Urine Not Detected (NotDetected); Barbiturate Screen,Urine Not Detected (NotDetected); Benzodiazepines Screen,Urine Not Detected (NotDetected); Cocaine Screen,Urine Not Detected (NotDetected); Methadone Screen, Urine Not Detected (NotDetected); Opiate Screen,Urine Not Detected (NotDetected); Oxycodone Screen, Urine Not Detected (NotDetected); Phencyclidine Screen,Urine Not Detected (NotDetected); Tricyclic Antidepressant,Urine Not Detected (NotDetected); Urn Cannabinoid Scrn Not Detected (NotDetected)
[2020-01-27] MEDS ORDERED: NITROGLYCERIN SL TABS 0.4 MG TAB SUBLINGUAL PRN (21:54)
[2020-01-27] MEDS: SODIUM CHLORIDE 0.9% 1,000 ML IV SCH (23:00)
[2020-01-28 03:14] LABS: Cholesterol 172 mg/dL (<200); HDL Cholesterol 56 mg/dL (40-60); LDL Cholesterol,Calculated 100 mg/dL (0-99); Triglycerides 78 mg/dL (<150)
[2020-01-28] MEDS: THIAMINE 100 MG TAB PO SCH (05:38)
[2020-01-28 08:18] VITALS: RESP 18
[2020-01-28] MEDS ORDERED: ASPIRIN 325 MG TAB PO SCH (09:00)
[2020-01-28] MEDS: SODIUM CHLORIDE 0.9% 1,000 ML IV SCH (09:07)
--- NOTE | 2020-01-28 11:18 | CT ---
EXAMINATION TYPE: CT lumbar spine wo con DATE OF EXAM: 01/28/2020 11:07 AM COMPARISON: HISTORY: pain and numbness in back CT DLP: 744 mGycm Automated exposure control for dose reduction was used. Unenhanced CT of the lumbar spine was performed. Bone and soft tissue window settings are submitted as well as coronal and sagittal reconstructions. FINDINGS: There is atelectatic change present at the lung bases. There is minimal calcification of th e arterial tree. Paraspinal soft tissues are otherwise normal. Vertebral body height and alignment are maintained. There is no spondylolisthesis or spondylolysis. N o fractures are seen. There is mild disc displacement at L1-2 and with mild hypertrophic changes in t he facets there is mild trefoiling of the thecal sac. There is also a mild disc displacement at L2-3. No definite protrusion is seen. The intervertebral foramina appear reasonably well-maintained. There is mild facet arthropathy throughout the lumbar spine most marked at L4-5. IMPRESSION: 1. NO ACUTE OSSEOUS LESION. 2. MILD DEGENERATIVE CHANGE. 3. NO DEFINITE NEURAL COMPRESSION OR SIGNIFICANT COMPRESSIVE DISCOPATHY.
--- NOTE | 2020-01-28 11:21 | CT ---
EXAMINATION TYPE: CT sacrum wo con DATE OF EXAM: 01/28/2020 COMPARISON: None. HISTORY: pain and numbness in back CT DLP: 663.4 mGycm Automated exposure control for dose reduction was used. FINDINGS: There is mild diverticular change within the sigmoid colon. Presacral soft tissues are othe rwise normal. Sacral elements are well aligned. No fracture is seen. There is minimal sclerosis of the left SI join t. The right SI joint shows minimal sclerosis. No bony destructive lesion is seen. IMPRESSION: 1. NO ACUTE OSSEOUS LESION. 2. MINIMAL SCLEROSIS OF THE LEFT SI JOINT OF QUESTIONABLE SIGNIFICANCE. 3. MILD, UNCOMPLICATED DIVERTICULOSIS OF THE SIGMOID COLON.
--- NOTE | 2020-01-28 11:30 | P.HPIM ---
History of Present Illness Patient is a 9-year-old male came in with compensative pallor seizures in the lower extremity sitting denied any paresthesias in the upper extremities. Patient was seen in multiple hospitals in ERs was discharged home underwent mult iple testings. I do not have the results of those. Patient has multiple other nonspecific symptoms including some. Sensation or burning sensation going from his foot up to the top of the body whenever he eats. Patient is also coming of gaseous reflux disease symptoms. Patient does have good strength in lower expertise but he says he cannot even drive patient's is comparing of shortness of breath but. Saturating well at 96% on room air patient used to drink 6 beers a day quit drinking about 7 days ago it patient denied any fever chills cough all the imaging studies are within normal limits some obtaining a lumbosacral CAT scan if that is an show any significant abnormality patient will be discharged and patient was asked to take as needed Tylenol for his back pain. Patient doesn't have any incontinence of bowel. Denied any. His saddle anesthesia. Patient's Prilosec will be increased to twice a day. Review of Systems REVIEW OF SYSTEMS: CONSTITUTIONAL: No fever, no malaise, no fatigue. HEENT: No recent visual problems or hearing problems. Denied any sore throat. CARDIOVASCULAR: No chest pain, orthopnea, PND, no palpitations, no syncope. PULMONARY: No shortness of breath, no cough, no hemoptysis. GASTROINTESTINAL: No diarrhea. NEUROLOGICAL: No headaches, no weakness, no numbness. HEMATOLOGICAL: Denies any bleeding or petechiae. GENITOURINARY: Denies any burning micturition, frequency, or urgency. MUSCULOSKELETAL/RHEUMATOLOGICAL: As mentioned in HPI ENDOCRINE: Denies any polyuria or polydipsia. The rest of the 14-point review of systems is negative. Past Medical History Past Medical History: COPD History of Any Multi-Drug Resistant Organisms: None Reported Past Surgical History: Orthopedic Surgery Past Anesthesia/Blood Transfusion Reactions: No Reported Reaction Past Psychological History: No Psychological Hx Reported Smoking Status: Current every day smoker Past Alcohol Use History: Daily, Heavy Past Drug Use History: None Reported Medications and Allergies Home Medications Medication Instructions Recorded Confirmed Type Acetaminophen Tab [Tylenol] 650 mg PO Q4H PRN #60 tab 01/28/20 Rx Citalopram Hydrobromide [CeleXA] 10 mg PO DAILY 01/28/20 01/28/20 History Loratadine [Claritin] 10 mg PO DAILY 01/28/20 01/28/20 History Omeprazole [PriLOSEC] 20 mg PO BID #30 cap 01/28/20 01/28/20 Rx Allergies Allergy/AdvReac Type Severity Reaction Status Date / Time Iodinated Contrast Media AdvReac Nausea & Verified 01/27/20 20:09 [Iodinated Contrast- Oral Vomiting/PASSES and IV Dye] OUT Physical Exam Vitals: Vital Signs Temp Pulse Pulse Resp BP BP BP 01/28/20 08:16 98.2 F 54 L 18 128/71 01/28/20 04:00 97.9 F 46 L 16 124/72 01/28/20 00:00 98.3 F 63 16 134/73 01/27/20 23:06 98.3 F 16 134/73 01/27/20 23:00 98.3 F 62 18 132/82 01/27/20 22:00 72 20 142/88 01/27/20 21:00 68 20 140/88 01/27/20 20:30 68 20 144/85 01/27/20 20:07 98.6 F 78 20 126/83 Pulse Ox 01/28/20 08:16 96 01/28/20 04:00 99 01/28/20 00:00 97 01/27/20 23:06 97 01/27/20 23:00 98 01/27/20 22:00 96 01/27/20 21:00 97 01/27/20 20:30 98 01/27/20 20:07 100 Intake and Output 01/27/20 01/28/20 01/28/20 22:59 06:59 14:59 Intake Total 250 240 Balance 250 240 Intake: Oral 250 240 Other: Voiding Method Toilet Toilet # Voids 2 Weight 78.925 kg 78.1 kg PHYSICAL EXAMINATION: GENERAL: The patient is alert and oriented x3, not in any acute distress. Well developed, well nourished. HEENT: Pupils are round and equally reacting to light. EOMI. No scleral icterus. No conjunctival pallor. Normocephalic, atraumatic. No pharyngeal erythema. No thyromegaly. CARDIOVASCULAR: S1 and S2 present. No murmurs, rubs, or gallops. PULMONARY: Chest is clear to auscultation, no wheezing or crackles. ABDOMEN: Soft, nontender, nondistended, normoactive bowel sounds. No palpable organomegaly. MUSCULOSKELETAL: No joint swelling or deformity. EXTREMITIES: No cyanosis, clubbing, or pedal edema. NEUROLOGICAL: Gross neurological examination did not reveal any focal deficits. SKIN: No rashes. Results CBC & Chem 7: 01/27/20 20:20 01/27/20 20:20 Labs: Abnormal Lab Results - Last 24 Hours (Table) 01/27/20 01/27/20 01/28/20 Range/Units 20:20 21:15 02:38 Glucose 120 H (74-99) mg/dL LDL Cholesterol, Calc 100 H (0-99) mg/dL Urine Protein Trace H (Negative) Urine Mucus Many H (None) /hpf Thrombosis Risk Factor Assmnt - Choose All That Apply Each Factor Represents 1 point: Abnormal pulmonary function (COPD), Age 41-60 years Each Risk Factor Represents 3 Points: Family history of DVT/PE Thrombosis Risk Factor Assessment Total Risk Factor Score: 5 Thrombosis Risk Factor Assessment Level: High Risk Assessment and Plan Plan: -Subjective symptoms of paresthesias in both legs. Will obtain a computed t omography scan of the lumbosacral spine make sure there is any significant medical apathy. Patient doesn't have any weakness or. No saddle anesthesia patient will be discharged on Tylenol if that doesn't help can use steroids I'm not using steroids because of his gaseous visual reflux disease -Gastroesophageal reflux disease with the peptic ulcer disease symptoms of nausea epigastric abdominal discomfort increase the Prilosec to twice a day -Mild sinus bradycardia patient has some nonspecific ST-T wave changes on the EKG patient's troponins are negative rule out acute coronary syndromes -Alcohol abuse quit alcohol a week ago patient is presently not having withdrawals are expected withdrawals now. -COPD and nicotine abuse: Counseling was provided regarding nicotine abuse
--- NOTE | 2020-01-28 11:31 | P.DS ---
Providers Date of admission: 01/27/20 22:56 Attending physician: Karsten Armstrong Consults: 01/27/20 21:54 Consult Physician Urgent Consulting Provider: Brooks Coppola Consult Reason/Comments: chest pain Do you want consulting provider notified?: Yes Primary care physician: Gretta Hendrickson [facility] Course: Refer to my HPI for further details Patient Condition at Discharge: Serious Plan - Discharge Summary Discharge Rx Participant: Yes New Discharge Prescriptions: New Acetaminophen Tab [Tylenol] 650 mg PO Q4H PRN #60 tab PRN Reason: Pain Continue Loratadine [Claritin] 10 mg PO DAILY Citalopram Hydrobromide [CeleXA] 10 mg PO DAILY Changed Omeprazole [PriLOSEC] 20 mg PO BID #30 cap Discontinued hydrOXYzine HCL [Atarax] 25 mg PO TID PRN PRN Reason: Itching Discharge Medication List Acetaminophen Tab [Tylenol] 650 mg PO Q4H PRN #60 tab 01/28/20 [Rx] Citalopram Hydrobromide [CeleXA] 10 mg PO DAILY 01/28/20 [History] Loratadine [Claritin] 10 mg PO DAILY 01/28/20 [History] Omeprazole [PriLOSEC] 20 mg PO BID #30 cap 01/28/20 [Rx] Follow up Appointment(s)/Referral(s): Gretta Hendrickson MD [Primary Care Provider] - 3 Days Discharge Disposition: HOME SELF-CARE
[2020-01-28 11:36] VITALS: BP 125/76; PULSE 68; TEMP 98.1
--- NOTE | 2020-01-28 12:22 | CONS ---
CONSULTATION CHIEF COMPLAINT: Chest pain. HISTORY OF PRESENT ILLNESS: This is a 59-year-old gentleman with no significant past medical history who comes to the hospital complaining of chest pain. In the last several weeks, he has been at [facility], [facility], and also at this hospital and has come back to this hospital complaining of chest discomfort. His chest pain is sharp, precordial, and related to exertion and associated diaphoresis. EKG shows sinus rhythm with poor R wave progression. Cardiac enzymes have been negative. There is history of smoking. There is no history of hypertension, diabetes, dyslipidemia. The patient tells me that he had a recent negative stress test at [facility]. PAST MEDICAL HISTORY: Negative for hypertension, diabetes, dyslipidemia. MEDICATIONS: Medications are as charted. ALLERGIES: Allergies are as charted. FAMILY HISTORY: Negative for premature coronary artery disease. SOCIAL HISTORY: Negative current smoking, EtOH abuse or drug abuse. REVIEW OF SYSTEMS: HEENT: Unremarkable. CARDIAC: As described above. RESPIRATORY: Negative. GI: Negative. GENITOURINARY: Negative. ALLERGY/IMMUNOLOGY: Negative. MUSCULOSKELETAL: Significant for arthritis. PSYCHOSOCIAL: Negative. ENDOCRINE: Negative. DERM: Negative. CONSTITUTIONAL: Negative. ONCOLOGICAL: Negative. AUTO SERVICE ADVISOR: Negative. The rest of the system review is not relevant. EXAM: Comfortable at rest. Afebrile. Heart rate is 54 beats per minute, blood pressure is 128/70, respiratory rate is 18. There is no jugular venous distention. Chest exam reveals good air entry bilaterally. Heart exam reveals first and second heart sounds. No gallop. No murmur. No rub. Abdomen is soft, nontender. Exam of the extremities did not reveal any edema. Peripheral pulses were felt. ASSESSMENT: Precordial chest pain, atypical, probably noncardiac. PLAN: Obtain stress test from [facility]. If he had a negative stress test, does not need anything else done. I gave the patient the option of going home today. He does not want to. He will spend the night here. MMMICHAELAL / FERDINANDN: [id number] /
[2020-01-29] MEDS ORDERED: PANTOPRAZOLE 40 MG TABLET PO SCH (07:30)
[2020-01-29] MEDS ORDERED: LORATADINE 10 MG TAB PO SCH (09:00)
[2020-01-29] MEDS ORDERED: CITALOPRAM HYDROBROMIDE 10 MG TAB PO SCH (09:00)
== END 2020-01-28 12:17 | disposition home or self-care (01) ==
LOC: EC 20:03 → 3SCARD 22:56 → 1SOBS 01-28 07:51
PROVIDERS: ADMIT Hospitalist; ATTEND Hospitalist
DX: R07.2 Precordial pain (principal); R61 Generalized hyperhidrosis; R20.2 Paresthesia of skin; R42 Dizziness and giddiness; F10.10 Alcohol abuse, uncomplicated; F17.200 Nicotine dependence, unspecified, uncomplicated; J44.9 Chronic obstructive pulmonary disease, unspecified; K21.9 Gastro-esophageal reflux disease without esophagitis; K27.9 Peptic ulcer, site unspecified, unspecified as acute or chronic, without hemorrhage or perforation; Z91.041 Radiographic dye allergy status; Z71.6 Tobacco abuse counseling; Z82.49 Family history of ischemic heart disease and other diseases of the circulatory system; Z79.899 Other long term (current) drug therapy; Z79.52 Long term (current) use of systemic steroids
CPT/HCPCS: 96360; 96372; 99285; 36415; 93005; 85379; 83880; 80061; 80053; 83735; 84100; 84484 ×2; 85025; 81001; 80306; 71046; 72131; 72192; G0378 ×2; G0480; J3411; 80320

== ENCOUNTER 2020-02-01 09:15 | Emergency (ER) | payer OTHER ==
[2020-02-01 09:21] VITALS: BP 131/88; PULSE 77; RESP 18; TEMP 98
[2020-02-01] MEDS ORDERED: MAGNESIUM CITRATE 296 ML BOTTLE PO ONE (09:48)
--- NOTE | 2020-02-01 09:52 | XR ---
EXAMINATION TYPE: XR KUB DATE OF EXAM: 02/01/2020 9:46 AM CLINICAL HISTORY: Constipation and abdominal pain TECHNIQUE: Single upright image of the abdomen is obtained. COMPARISON: None. FINDINGS: Mild degree colonic fecal stasis. No dilated large or small bowel. No pneumoperitoneum. George g bases are well aerated. Osseous structures are grossly intact with mild degenerative change of the spine and hips. No suspicious calcification in the abdomen. IMPRESSION: Mild degree colonic fecal stasis in an overall nonobstructive bowel gas pattern.
--- NOTE | 2020-02-01 09:53 | ED ---
Abdominal Pain HPI - General Chief Complaint: Abdominal Pain Stated Complaint: constipation Time Seen by Provider: 02/01/20 09:33 Source: patient, RN notes reviewed Mode of arrival: ambulatory Limitations: no limitations - History of Present Illness Initial Comments: This a 59-year-old male presents emergency Department with chief complaint of constipation. Patient states he is not having stool output in the last few days. Patient states that he is not taking anything as he is unsure what take any prescription to take something. Patient states that initially taken out was very hard and states it is very small. Patient denies any localized abdominal pain denies fever, chills, chest pain or shortness breath. He states that when he feels increased gas the pain increases. Patient doesn't dysuria hematuria no prior abdominal surgeries no prior bowel obstructions. Patient had a few recent ER visits along with recent hospitalization for chest pain. At this time he was evaluated for his back pain which is chronic in nature had CT. Patient feels he needs MRI of his back. Patient denies any bowel incontinence or bladder retention - Related Data Home Medications Medication Instructions Recorded Confirmed Citalopram Hydrobromide [CeleXA] 10 mg PO DAILY 01/28/20 01/28/20 Loratadine [Claritin] 10 mg PO DAILY 01/28/20 01/28/20 Previous Rx's Medication Instructions Recorded Acetaminophen Tab [Tylenol] 650 mg PO Q4H PRN #60 tab 01/28/20 Omeprazole [PriLOSEC] 20 mg PO BID #30 cap 01/28/20 Allergies Allergy/AdvReac Type Severity Reaction Status Date / Time Iodinated Contrast Media AdvReac Nausea & Verified 02/01/20 09:21 [Iodinated Contrast- Oral Vomiting/PASSES and IV Dye] OUT Review of Systems ROS Statement: Those systems with pertinent positive or pertinent negative responses have been documented in the HPI. ROS Other: All systems not noted in ROS Statement are negative. Past Medical History Past Medical History: COPD History of Any Multi-Drug Resistant Organisms: None Reported Past Surgical History: Orthopedic Surgery Past Anesthesia/Blood Transfusion Reactions: No Reported Reaction Past Psychological History: No Psychological Hx Reported Smoking Status: Current every day smoker Past Alcohol Use History: Daily, Heavy Past Drug Use History: None Reported General Exam Limitations: no limitations General appearance: alert, in no apparent distress Head exam: Present: atraumatic, normocephalic, normal inspection Eye exam: Present: normal appearance, PERRL, EOMI. Absent: scleral icterus, conjunctival injection, periorbital swelling ENT exam: Present: normal exam, normal oropharynx, mucous membranes moist, TM's normal bilaterally Neck exam: Present: normal inspection, full ROM. Absent: tenderness, meningismus, lymphadenopathy Respiratory exam: Present: normal lung sounds bilaterally. Absent: respiratory distress, wheezes, rales, rhonchi, stridor Cardiovascular Exam: Present: regular rate, normal rhythm, normal heart sounds. Absent: systolic murmur, diastolic murmur, rubs, gallop, clicks GI/Abdominal exam: Present: soft, normal bowel sounds. Absent: distended, tenderness, guarding, rebound, rigid Back exam: Absent: CVA tenderness (R), CVA tenderness (L) Neurological exam: Present: alert, oriented X3, CN II-XII intact, reflexes normal. Absent: motor sensory deficit Skin exam: Present: warm, dry, intact, normal color. Absent: rash Course Vital Signs 02/01/20 09:18 Temperature 98.0 F Pulse Rate 77 Respiratory 18 Rate Blood Pressure 131/88 O2 Sat by Pulse 99 Oximetry Medical Decision Making - Medical Decision Making Patient's x-ray was reviewed there is no evidence of obstruction. There is mild stool noted. Patient be provided laxatives go home with. Patient's abdomen Reveal Any Localized Tenderness I Did Review Prior Medical Records Which I Reviewed Any Significant Findings. Patient CT Lumbar Spine Did Show Mild Degenerative Changes. Patient Informed of This He Is Informed That He Can Follow-Up with His PCP for MRI of His Back As an Outpatient Setting As Is No Red Flag Symptoms. Disposition Clinical Impression: Abdominal pain, Constipation Disposition: HOME SELF-CARE Condition: Stable Instructions (If sedation given, give patient instructions): Constipation (ED) Additional Instructions: Please return to the Emergency Department if symptoms worsen or any other concerns. Is patient prescribed a controlled substance at d/c from ED?: No Referrals: Gretta Hendrickson MD [Primary Care Provider] - 1-2 days Time of Disposition: 09:53
== END 2020-02-01 10:08 | disposition home or self-care (01) ==
LOC: EC 09:15
DX: K59.00 Constipation, unspecified (principal); R10.9 Unspecified abdominal pain; F17.200 Nicotine dependence, unspecified, uncomplicated; Z79.899 Other long term (current) drug therapy; Z91.041 Radiographic dye allergy status
CPT/HCPCS: 74018; 99284

== ENCOUNTER 2020-02-23 07:17 | Day surgery (SDC) | payer OTHER ==
[2020-02-22 11:58] VITALS: BMI 24.9
[~2020-02-23 07:17] MED LIST: LACTATED RINGERS 1,000 ML IV SCH; LIDOCAINE 1% (10MG/ML) FOR IV START INTRADERMA PRN
[2020-02-23 07:29] VITALS: TEMP 98
[2020-02-23] MEDS ORDERED: LACTATED RINGERS 1,000 ML IV ONE (07:29)
[2020-02-23] MEDS ORDERED: PROPOFOL 10 MG/ML 20 ML VIAL IV ONE (07:49)
[2020-02-23] MEDS ORDERED: LIDOCAINE 1% INJ 10MG/ML (20 ML MDV) ONE (07:49)
[2020-02-23] MEDS ORDERED: fentaNYL (PF) 50 MCG/ML 2 ML AMP ONE (07:49)
[2020-02-23] MEDS ORDERED: IV FLUID CONTINUATION 1,000 ML IV ONE (08:14)
--- NOTE | 2020-02-23 08:14 | P.PCN ---
Date of Procedure: 02/23/20 Procedure(s) Performed: Brief history: Patient is a pleasant 59-year-old white male scheduled for an elective upper endoscopy as well as colonoscopy as a part of evaluation of with abdominal pain, abdominal bloating. And weakness for the last few weeks duration. He went to the emergency room in 4 different occasions the last few months for the same symptoms. He also has family history of colon cance diagnosed in mother at age 70. r Procedure performed: Esophagogastroduodenoscopy with biopsy Colonoscopy with random biopsy Preoperative diagnosis: Abdominal pain, abdominal bloating Family history of colon cancer Anesthesia: MAC Procedure: After informed consent was obtained from the patient was brought into the endoscopy unit and IV sedation was administered by anesthesia under continuous monitoring. Initially upper endoscopy was done. The Olympus GF 160 video endoscope was inserted inserted into the mouth and esophagus intubated without any difficulty and was gradually advanced into the stomach and duodenum and carefully examined. The bulb and second part of the duodenum appeared normal. The scope was then withdrawn into the stomach adequately insufflated with air and upon careful examination the antrum had mild diffuse gastritis and biopsies were done from this area. The body, cardia and fundus appeared normal. The scope was then withdrawn into the esophagus. The GE junction was located at 40 cm to the incisors. It appeared regular with no erythema erosions or ulcerations. Rest of the esophagus appeared normal. Patient tolerated the procedure well. At this time the patient continued to remain sedation. Initial digital rectal examination was normal. Olympus CF 160 video colonoscope was then inserted into the rectum and gradually advanced to the cecum without any difficulty. Careful examination was performed as the scope was gradually being withdrawn. The prep was excellent. The cecum, ascending colon, transverse colon, descending colon, sigmoid colon and rectum appeared normal. Scattered left-sided diverticulosis seen. Retroflexion was performed in the rectum and small internal hemorrhoids were noted. Patient tolerated the procedure well. Impression: 1. Upper endoscopy revealed mild antral gastritis but no evidence of esophagitis or peptic ulcer disease 2. Colonoscopy revealed scattered left-sided diverticulosis and small internal hemorrhoids Recommendations: Findings of this examination were discussed with the patient as well as[ his family. He was advised to follow with the biopsy results. He will be seen in office in 2 weeks.
[2020-02-23 08:35] LABS: ALT 40 U/L (4-49); AST 29 U/L (17-59); African American GFR (CKD) >90 (>60 ml/min/1.73 sqM); Albumin 4.6 g/dL (3.5-5.0); Alkaline Phosphatase 101 U/L (38-126); Anion Gap 7 mmol/L; Blood Urea Nitrogen 18 mg/dL (9-20); Calcium 9.5 mg/dL (8.4-10.2); Carbon Dioxide 31 mmol/L (22-30); Chloride 101 mmol/L (98-107); Glucose 99 mg/dL (74-99); Non-African American GFR(CKD) >90 (>60 ml/min/1.73 sqM); Sodium 139 mmol/L (137-145); Total Bilirubin 0.7 mg/dL (0.2-1.3); Total Protein 7.7 g/dL (6.3-8.2)
[2020-02-23 08:38] VITALS: BP 115/67; PULSE 78; RESP 18
[2020-02-23 16:50] LABS: Gliadin AB IgA, Deaminated NEGATIVE (NEGATIVE); Gliadin AB IgA, Unit 0.3 U/mL; Gliadin AB IgG, Deaminated NEGATIVE (NEGATIVE)
== END 2020-02-23 08:47 | disposition home or self-care (01) ==
LOC: ORWHC2ENDO 07:17
PROVIDERS: ATTEND Internal Medicine Gastroenterology
DX: K29.50 Unspecified chronic gastritis without bleeding (principal); K57.30 Diverticulosis of large intestine without perforation or abscess without bleeding; K64.8 Other hemorrhoids; Z80.0 Family history of malignant neoplasm of digestive organs; J44.9 Chronic obstructive pulmonary disease, unspecified; Z91.041 Radiographic dye allergy status; Z79.899 Other long term (current) drug therapy
CPT/HCPCS: 80053; 83516 ×4; 45380; 43239; J2001; J3010; J2704; 88305

== ENCOUNTER 2020-06-06 10:34 | Emergency (ER) | payer OTHER ==
[2020-06-06 10:41] VITALS: TEMP 98
[2020-06-06] MEDS ORDERED: PANTOPRAZOLE 40 MG/10 ML VIAL IVP STA (11:09)
[2020-06-06] MEDS ORDERED: SODIUM CHLORIDE 0.9% 1,000 ML IV STA ×2 (11:09)
--- NOTE | 2020-06-06 11:13 | ED ---
Abdominal Pain HPI - General Chief Complaint: Abdominal Pain Stated Complaint: GERD, confusion Time Seen by Provider: 06/06/20 10:48 Source: patient, RN notes reviewed, old records reviewed Mode of arrival: ambulatory Limitations: no limitations - History of Present Illness Initial Comments: Patient is a 59-year-old male who presents emergency department today with multiple complaints. He states that he has had abdominal pain, bloating and constipation issues for the past 3 months. He states that that seems to "affect his nervous system". Complains tingling and trouble focusing at times. He states he also has history of asthma and has had persisting cough. Patient reportedly has had no fevers and chills during this time. He has been evaluated by his primary care doctor, has had a colonoscopy and upper GI scope within the past 3 months. He is also seen a teacher elementary school and neurologist. stated that he's had increased weight loss of 30 pounds within the past 3 months. He states she's lost 5 pounds in the past week. He reports that he size primary care doctor a few weeks ago and was scheduled to have a computed tomography scan with contrast of his chest and ultrasound of his kidneys for further evaluation.He states that he cannot wait to have the CT scans and ultrasounds because he keeps losing significant amount of weight. Patient seems to be significantly concerning for cancerous his parents have from cancer one year apart from each other few years ago. - Related Data Home Medications Medication Instructions Recorded Confirmed Loratadine [Claritin] 10 mg PO DAILY 01/28/20 06/06/20 Acetaminophen Tab [Tylenol] 650 mg PO Q4H PRN 02/22/20 06/06/20 Omeprazole [PriLOSEC] 20 mg PO DAILY 02/22/20 06/06/20 Albuterol Inhaler [Ventolin Hfa 2 puff INHALATION RT-Q4H PRN 06/06/20 06/06/20 Inhaler] Beclomethasone Dipropionate [Qvar 2 puff INHALATION RT-BID 06/06/20 06/06/20 80mcg Redihaler] Polyethylene Glycol 3350 [Miralax] 17 gm PO BID 06/06/20 06/06/20 Allergies Allergy/AdvReac Type Severity Reaction Status Date / Time Iodinated Contrast Media AdvReac Nausea & Verified 06/06/20 11:40 [Iodinated Contrast- Oral Vomiting/PASSES and IV Dye] OUT Review of Systems ROS Statement: Those systems with pertinent positive or pertinent negative responses have been documented in the HPI. ROS Other: All systems not noted in ROS Statement are negative. Past Medical History Past Medical History: COPD, GERD/Reflux Additional Past Medical History / Comment(s): BACK PAIN, CONSTIPATION- STATES BLOOD IN STOOL LAST WEEK. History of Any Multi-Drug Resistant Organisms: None Reported Past Surgical History: Orthopedic Surgery Additional Past Surgical History / Comment(s): LEFT ROTATOR CUFF, LEFT KNEE CAP SHATTERED AND PINS IN LEG. Past Anesthesia/Blood Transfusion Reactions: No Reported Reaction, Motion Sickness Past Psychological History: Anxiety Smoking Status: Current every day smoker Past Alcohol Use History: Daily, Heavy Past Drug Use History: None Reported - Past Family History Mother Family Medical History: Cancer Additional Family Medical History / Comment(s): LUNG AND BOWEL CANCER Father Family Medical History: Cancer, CVA/TIA Additional Family Medical History / Comment(s): LUNG CANCER General Exam - General Exam Comments Initial Comments: 59-year-old male. Alert and oriented. No distress. Limitations: no limitations General appearance: alert, in no apparent distress Head exam: Present: atraumatic, normocephalic, normal inspection Eye exam: Present: normal appearance, PERRL, EOMI. Absent: scleral icterus, conjunctival injection, periorbital swelling ENT exam: Present: normal exam, mucous membranes moist Neck exam: Present: normal inspection. Absent: tenderness, meningismus, lymphadenopathy Respiratory exam: Present: normal lung sounds bilaterally. Absent: respiratory distress, wheezes, rales, rhonchi, stridor Cardiovascular Exam: Present: regular rate GI/Abdominal exam: Present: soft, normal bowel sounds. Absent: distended, tenderness, guarding, rebound, rigid Extremities exam: Present: normal inspection, full ROM, normal capillary refill. Absent: tenderness, pedal edema, joint swelling, calf tenderness Back exam: Present: normal inspection Neurological exam: Present: alert, oriented X3, CN II-XII intact Psychiatric exam: Present: normal affect, normal mood Course Vital Signs 06/06/20 06/06/20 10:39 11:33 Temperature 98.0 F Pulse Rate 57 L 59 L Respiratory 16 18 Rate Blood Pressure 144/76 122/82 O2 Sat by Pulse 100 99 Oximetry Medical Decision Making - Medical Decision Making 59-year-old male presents for his friends today with multiple complaints. Standing short of breath with abdominal pain and bloating GERD symptoms. He's had multiple evaluations by neurology for dizziness as well as GI doctors having upper and lower endoscopy within the past 3 months. His been noted, per ilia hernandez's multiple symptoms. Patient is worried about weight loss. This time he appears in no acute distress. Patient's labs reviewed and unremarkable. Patient is upset that he was not getting a CT of his chest today. Discussed is no reason to emergently test this at this time as he has normal pulse oxygenation of 99 to 100% on room air, is not tachycardic and lungs are clear to auscultation. I discussed this chest x-ray appears normal as well. 11 Patient advised to follow up with his primary care doctor and discussed return parameters.I discussed the case with Dr. Barber. - Lab Data Result diagrams: 06/06/20 11:11 06/06/20 11:11 Lab Results 06/06/20 06/06/20 06/06/20 Range/Units 11:11 11:11 11:11 WBC 12.2 H (3.8-10.6) k/uL RBC 5.36 (4.30-5.90) m/uL Hgb 17.0 (13.0-17.5) gm/dL Hct 52.2 (39.0-53.0) % MCV 97.5 (80.0-100.0) fL MCH 31.7 (25.0-35.0) pg MCHC 32.5 (31.0-37.0) g/dL RDW 13.6 (11.5-15.5) % Plt Count 232 (150-450) k/uL Neutrophils % 77 % Lymphocytes % 16 % Monocytes % 4 % Eosinophils % 1 % Basophils % 0 % Neutrophils # 9.4 H (1.3-7.7) k/uL Lymphocytes # 2.0 (1.0-4.8) k/uL Monocytes # 0.5 (0-1.0) k/uL Eosinophils # 0.2 (0-0.7) k/uL Basophils # 0.1 (0-0.2) k/uL PT 9.9 (9.0-12.0) sec INR 0.9 (<1.2) APTT 24.6 (22.0-30.0) sec Sodium 138 (137-145) mmol/L Potassium 4.4 (3.5-5.1) mmol/L Chloride 106 (98-107) mmol/L Carbon Dioxide 26 (22-30) mmol/L Anion Gap 6 mmol/L BUN 9 (9-20) mg/dL Creatinine 0.68 (0.66-1.25) mg/dL Est GFR (CKD-EPI)AfAm >90 (>60 ml/min/1.73 sqM) Est GFR (CKD-EPI)NonAf >90 (>60 ml/min/1.73 sqM) Glucose 147 H (74-99) mg/dL Calcium 9.2 (8.4-10.2) mg/dL Magnesium (1.6-2.3) mg/dL Total Bilirubin 0.6 (0.2-1.3) mg/dL AST 22 (17-59) U/L ALT 20 (4-49) U/L Alkaline Phosphatase 80 (38-126) U/L Troponin I (0.000-0.034) ng/mL Total Protein 6.9 (6.3-8.2) g/dL Albumin 4.3 (3.5-5.0) g/dL Amylase 41 (30-110) U/L Lipase 40 (23-300) U/L Urine Color Urine Appearance (Clear) Urine pH (5.0-8.0) Ur Specific [place] (1.001-1.035) Urine Protein (Negative) Urine Glucose (UA) (Negative) Urine Ketones (Negative) Urine Blood (Negative) Urine Nitrite (Negative) Urine Bilirubin (Negative) Urine Urobilinogen (<2.0) mg/dL Ur Leukocyte Esterase (Negative) Urine WBC (0-5) /hpf Amorphous Sediment (None) /hpf Urine Mucus (None) /hpf Urine Opiates Screen (NotDetected) Ur Oxycodone Screen (NotDetected) Urine Methadone Screen (NotDetected) Ur Propoxyphene Screen (NotDetected) Ur Barbiturates Screen (NotDetected) U Tricyclic Antidepress (NotDetected) Ur Phencyclidine Scrn (NotDetected) Ur Amphetamines Screen (NotDetected) U Methamphetamines Scrn (NotDetected) U Benzodiazepines Scrn (NotDetected) Urine Cocaine Screen (NotDetected) U Marijuana (THC) Screen (NotDetected) Serum Alcohol <10 mg/dL 06/06/20 06/06/20 06/06/20 Range/Units 11:11 11:11 11:46 WBC (3.8-10.6) k/uL RBC (4.30-5.90) m/uL Hgb (13.0-17.5) gm/dL Hct (39.0-53.0) % MCV (80.0-100.0) fL MCH (25.0-35.0) pg MCHC (31.0-37.0) g/dL RDW (11.5-15.5) % Plt Count (150-450) k/uL Neutrophils % % Lymphocytes % % Monocytes % % Eosinophils % % Basophils % % Neutrophils # (1.3-7.7) k/uL Lymphocytes # (1.0-4.8) k/uL Monocytes # (0-1.0) k/uL Eosinophils # (0-0.7) k/uL Basophils # (0-0.2) k/uL PT (9.0-12.0) sec INR (<1.2) APTT (22.0-30.0) sec Sodium (137-145) mmol/L Potassium (3.5-5.1) mmol/L Chloride (98-107) mmol/L Carbon Dioxide (22-30) mmol/L Anion Gap mmol/L BUN (9-20) mg/dL Creatinine (0.66-1.25) mg/dL Est GFR (CKD-EPI)AfAm (>60 ml/min/1.73 sqM) Est GFR (CKD-EPI)NonAf (>60 ml/min/1.73 sqM) Glucose (74-99) mg/dL Calcium (8.4-10.2) mg/dL Magnesium 2.2 (1.6-2.3) mg/dL Total Bilirubin (0.2-1.3) mg/dL AST (17-59) U/L ALT (4-49) U/L Alkaline Phosphatase (38-126) U/L Troponin I <0.012 (0.000-0.034) ng/mL Total Protein (6.3-8.2) g/dL Albumin (3.5-5.0) g/dL Amylase (30-110) U/L Lipase (23-300) U/L Urine Color Yellow Urine Appearance Cloudy (Clear) Urine pH 7.0 (5.0-8.0) Ur Specific [place] 1.012 (1.001-1.035) Urine Protein Negative (Negative) Urine Glucose (UA) Negative (Negative) Urine Ketones Negative (Negative) Urine Blood Negative (Negative) Urine Nitrite Negative (Negative) Urine Bilirubin Negative (Negative) Urine Urobilinogen <2.0 (<2.0) mg/dL Ur Leukocyte Esterase Negative (Negative) Urine WBC 1 (0-5) /hpf Amorphous Sediment Rare H (None) /hpf Urine Mucus Few H (None) /hpf Urine Opiates Screen (NotDetected) Ur Oxycodone Screen (NotDetected) Urine Methadone Screen (NotDetected) Ur Propoxyphene Screen (NotDetected) Ur Barbiturates Screen (NotDetected) U Tricyclic Antidepress (NotDetected) Ur Phencyclidine Scrn (NotDetected) Ur Amphetamines Screen (NotDetected) U Methamphetamines Scrn (NotDetected) U Benzodiazepines Scrn (NotDetected) Urine Cocaine Screen (NotDetected) U Marijuana (THC) Screen (NotDetected) Serum Alcohol mg/dL 06/06/20 Range/Units 11:46 WBC (3.8-10.6) k/uL RBC (4.30-5.90) m/uL Hgb (13.0-17.5) gm/dL Hct (39.0-53.0) % MCV (80.0-100.0) fL MCH (25.0-35.0) pg MCHC (31.0-37.0) g/dL RDW (11.5-15.5) % Plt Count (150-450) k/uL Neutrophils % % Lymphocytes % % Monocytes % % Eosinophils % % Basophils % % Neutrophils # (1.3-7.7) k/uL Lymphocytes # (1.0-4.8) k/uL Monocytes # (0-1.0) k/uL Eosinophils # (0-0.7) k/uL Basophils # (0-0.2) k/uL PT (9.0-12.0) sec INR (<1.2) APTT (22.0-30.0) sec Sodium (137-145) mmol/L Potassium (3.5-5.1) mmol/L Chloride (98-107) mmol/L Carbon Dioxide (22-30) mmol/L Anion Gap mmol/L BUN (9-20) mg/dL Creatinine (0.66-1.25) mg/dL Est GFR (CKD-EPI)AfAm (>60 ml/min/1.73 sqM) Est GFR (CKD-EPI)NonAf (>60 ml/min/1.73 sqM) Glucose (74-99) mg/dL Calcium (8.4-10.2) mg/dL Magnesium (1.6-2.3) mg/dL Total Bilirubin (0.2-1.3) mg/dL AST (17-59) U/L ALT (4-49) U/L Alkaline Phosphatase (38-126) U/L Troponin I (0.000-0.034) ng/mL Total Protein (6.3-8.2) g/dL Albumin (3.5-5.0) g/dL Amylase (30-110) U/L Lipase (23-300) U/L Urine Color Urine Appearance (Clear) Urine pH (5.0-8.0) Ur Specific [place] (1.001-1.035) Urine Protein (Negative) Urine Glucose (UA) (Negative) Urine Ketones (Negative) Urine Blood (Negative) Urine Nitrite (Negative) Urine Bilirubin (Negative) Urine Urobilinogen (<2.0) mg/dL Ur Leukocyte Esterase (Negative) Urine WBC (0-5) /hpf Amorphous Sediment (None) /hpf Urine Mucus (None) /hpf Urine Opiates Screen Not Detected (NotDetected) Ur Oxycodone Screen Not Detected (NotDetected) Urine Methadone Screen Not Detected (NotDetected) Ur Propoxyphene Screen Not Detected (NotDetected) Ur Barbiturates Screen Not Detected (NotDetected) U Tricyclic Antidepress Not Detected (NotDetected) Ur Phencyclidine Scrn Not Detected (NotDetected) Ur Amphetamines Screen Not Detected (NotDetected) U Methamphetamines Scrn Not Detected (NotDetected) U Benzodiazepines Scrn Not Detected (NotDetected) Urine Cocaine Screen Not Detected (NotDetected) U Marijuana (THC) Screen Not Detected (NotDetected) Serum Alcohol mg/dL 06/06/20 11:34 EKG performed at 11:26 AM shows sinus bradycardia, anteroseptal infarct age undetermined. Abnormal EKG. Ventricular rate of 59 bpm. Intervals 152 ms. QS duration is 86 ms. QT QTc is 420/4:15 milliseconds. - Radiology Data Radiology results: report reviewed Chest x-ray shows no acute cardio pulmonate process. No significant change from prior. Upright r abdominal x-ray shows nonspecific bowel gas pattern. Disposition Clinical Impression: Chronic abdominal pain Disposition: HOME SELF-CARE Condition: Good Instructions (If sedation given, give patient instructions): Abdominal Pain (ED) Additional Instructions: Please follow up with family doctor on Wednesday. Please return to the emergency room if your symptoms increase or worsen or for any other concerns. Is patient prescribed a controlled substance at d/c from ED?: No Referrals: Gretta Hendrickson MD [Primary Care Provider] - 1-2 days Time of Disposition: 12:42
[2020-06-06 11:24] LABS: Basophils # (A) 0.1 k/uL (0-0.2); Basophils % (A) 0 %; Eosinophils # (A) 0.2 k/uL (0-0.7); Eosinophils % (A) 1 %; HCT 52.2 % (39.0-53.0); Lymphocytes % (A) 16 %; MCH 31.7 pg (25.0-35.0); MCHC 32.5 g/dL (31.0-37.0); MCV 97.5 fL (80.0-100.0); Mean Platelet Volume 8.2; Monocytes # (A) 0.5 k/uL (0-1.0); Monocytes % (A) 4 %; Neutrophils # (A) 9.4 k/uL (1.3-7.7); Neutrophils % (A) 77 %; Platelet Count 232 k/uL (150-450); RBC 5.36 m/uL (4.30-5.90); RDW 13.6 % (11.5-15.5); WBC 12.2 k/uL (3.8-10.6)
--- NOTE | 2020-06-06 11:29 | XR ---
EXAMINATION TYPE: XR chest 2V DATE OF EXAM: 06/06/2020 COMPARISON: Chest x-ray January 27, 2020. HISTORY: Chest and upper abdominal pain. TECHNIQUE: Frontal and lateral views of the chest are obtained. FINDINGS: There is no focal air space opacity, pleural effusion, or pneumothorax seen. The cardiac silhouette size remains within normal limits. The osseous structures are intact. IMPRESSION: No acute cardiopulmonary process. No significant change from prior.
[2020-06-06 11:33] LABS: INR 0.9 (<1.2); Partial Thromboplastin Time 24.6 sec (22.0-30.0); Prothrombin Time 9.9 sec (9.0-12.0)
--- NOTE | 2020-06-06 11:34 | XR ---
EXAMINATION TYPE: XR KUB DATE OF EXAM: 06/06/2020 11:24 AM CLINICAL HISTORY: Upper abdominal pain TECHNIQUE: Upright images of the abdomen and pelvis were obtained COMPARISON: 02/01/2020 KUB. FINDINGS: Scattered gas is seen in non-distended small bowel loops. Gas and fecal material is seen in non-distended colon. There is no visceromegaly, pneumoperitoneum, or abnormal calcification apprecia ileana. The lung bases are clear. The osseous structures are intact. IMPRESSION: Nonspecific bowel gas pattern.
[2020-06-06 11:35] VITALS: RESP 18
[2020-06-06 11:35] LABS: ALT 20 U/L (4-49); AST 22 U/L (17-59); African American GFR (CKD) >90 (>60 ml/min/1.73 sqM); Albumin 4.3 g/dL (3.5-5.0); Alcohol <10 mg/dL; Alkaline Phosphatase 80 U/L (38-126); Amylase 41 U/L (30-110); Anion Gap 6 mmol/L; Blood Urea Nitrogen 9 mg/dL (9-20); Calcium 9.2 mg/dL (8.4-10.2); Carbon Dioxide 26 mmol/L (22-30); Chloride 106 mmol/L (98-107); Glucose 147 mg/dL (74-99); Non-African American GFR(CKD) >90 (>60 ml/min/1.73 sqM); Potassium 4.4 mmol/L (3.5-5.1); Sodium 138 mmol/L (137-145); Total Bilirubin 0.6 mg/dL (0.2-1.3); Total Protein 6.9 g/dL (6.3-8.2)
[2020-06-06 11:58] LABS: Amorphous Sediment,Urine Rare /hpf; Appearance,Urine Cloudy (Clear); Bilirubin,Urine Negative (Negative); Blood,Urine Negative (Negative); Color,Urine Yellow; Glucose,Urine (UA) Negative (Negative); Ketones,Urine Negative (Negative); Leukocyte Esterase,Urine Negative (Negative); Mucus,Urine Few /hpf; Nitrite,Urine Negative (Negative); Protein,Urine Negative (Negative); Specific Gravity,Urine 1.012 (1.001-1.035); Urobilinogen,Urine <2.0 mg/dL (<2.0); WBC,Urine 1 /hpf (0-5)
[2020-06-06 12:14] LABS: Amphetamine Screen,Urine Not Detected (NotDetected); Barbiturate Screen,Urine Not Detected (NotDetected); Benzodiazepines Screen,Urine Not Detected (NotDetected); Cocaine Screen,Urine Not Detected (NotDetected); Methadone Screen, Urine Not Detected (NotDetected); Opiate Screen,Urine Not Detected (NotDetected); Oxycodone Screen, Urine Not Detected (NotDetected); Phencyclidine Screen,Urine Not Detected (NotDetected); Tricyclic Antidepressant,Urine Not Detected (NotDetected); Urn Cannabinoid Scrn Not Detected (NotDetected)
[2020-06-06 12:58] VITALS: BP 118/72; PULSE 64
== END 2020-06-06 12:58 | disposition home or self-care (01) ==
LOC: EC 10:34
DX: G89.29 Other chronic pain (principal); R10.10 Upper abdominal pain, unspecified; R06.02 Shortness of breath; K21.9 Gastro-esophageal reflux disease without esophagitis; R63.4 Abnormal weight loss; R20.2 Paresthesia of skin; F17.200 Nicotine dependence, unspecified, uncomplicated; J44.9 Chronic obstructive pulmonary disease, unspecified; K59.00 Constipation, unspecified; Z79.51 Long term (current) use of inhaled steroids; Z79.899 Other long term (current) drug therapy; Z91.041 Radiographic dye allergy status
CPT/HCPCS: 36415; 93005; 80053; 82150; 83690; 83735; 84484; 85025; 85610; 85730; 81001; 80306; 71046; 74018; 96374; 96361 ×2; 99284; G0480; C9113; 80320

== ENCOUNTER → 2020-06-20 | Outpatient (CLI) | payer OTHER ==
--- NOTE | 2020-06-20 14:16 | US ---
EXAMINATION TYPE: US abdomen comp/pelvis limited DATE OF EXAM: 06/20/2020 COMPARISON: NONE CLINICAL HISTORY: R31.0 Gross Hematuria, R05 Persistant cough. Intermittent GERD, nausea and abdomen and back pain x 2 years EXAM MEASUREMENTS: Liver Length: 14.1 cm Gallbladder Wall: 0.2 cm CBD: 0.7 cm Spleen: 6.7 cm Right Kidney: 10.4 x 4.9 x 4.7 cm Left Kidney: 10.4 x 4.8 x 5.0 cm Pancreas: visualized portions wnl, limited by overlying midline bowel gas Liver: wnl Gallbladder: wnl CBD: dilated Spleen: wnl Right Kidney: 2 cysts with largest measuring 1.9cm lateral mid pole Left Kidney: 4.7 x 5.2 x 4.7cm cyst superior pole Upper IVC: wnl Abd Aorta: proximal portion measures in upper limits of normal Bladder: not fully distended, appears wnl as seen Bilateral Jets Seen no IMPRESSION: 1. The CBD is dilated measuring 7 mm distal CBD obstruction in the differential diagnosis. 2. Bilateral renal cysts
== END | disposition home or self-care (01) ==
LOC: RADUSWWP 13:26
PROVIDERS: ATTEND Internal Medicine
DX: K83.8 Other specified diseases of biliary tract (principal); N28.1 Cyst of kidney, acquired; R31.0 Gross hematuria
CPT/HCPCS: 76700; 76857

== ENCOUNTER → 2020-07-05 | Outpatient (CLI) | payer OTHER ==
--- NOTE | 2020-07-05 20:43 | MR ---
EXAMINATION TYPE: MR abdomen wo/w con DATE OF EXAM: 07/05/2020 COMPARISON: HISTORY: Abdominal/back pain, abnormal US CONTRAST: Standard multiplanar, multisequence MRI departmental protocol utilizing 7 mL intravenous Gadavist marin olinium contrast. Liver shows no focal defect. The spleen is intact. Spleen has normal size. Stomach is intact. There i s no evidence of pancreatic mass. Pancreatic duct is not dilated. Common bile duct measures up to 6 m m. The intrahepatic bile ducts are not dilated. Gallbladder appears normal. Gallbladder appears normal. There are bilateral renal cortical cysts. Largest measures 4.3 cm on the posterior left kidney. There is no retroperitoneal adenopathy. There is no hydronephrosis. Kidneys have normal size. There is no retroperitoneal adenopathy. There is no sign of ascites. There is no evidence of pleural effusion. Co ntrast images show normal renal opacification. There is no evidence of bowel obstruction. There are r ounded exophytic low signal lesions on the posterior left kidney and lateral right kidney that are pr obably atypical cyst. These are nonenhancing. There is normal contrast opacification of the portal ve nous system. IMPRESSION: Normal liver. Common bile duct upper limit of normal size. I see no dilated intrahepatic bile ducts. Bilateral renal cysts and some of these are atypical. No suspicious renal cyst.
== END | disposition home or self-care (01) ==
LOC: RADMRIMAIN 18:17
PROVIDERS: ATTEND Nurse Practitioner
DX: N28.1 Cyst of kidney, acquired (principal)
CPT/HCPCS: 74183; A9585